=== PATIENT | male | born 1975 | race Caucasian/White ===

== ENCOUNTER 2020-12-09 12:36 | Inpatient (IN) | payer OTHER ==
[2020-12-09] MEDS ORDERED: Sodium Chloride 0.9% 10 ML Syringe FLUSH PRN (13:05)
[2020-12-09] MEDS ORDERED: Sodium Chloride 0.9% 1,000 ML IV SCH (13:15)
--- NOTE | 2020-12-09 13:26 | EDM.PDOC ---
ED HPI GENERAL MEDICAL PROBLEM - General Chief Complaint: Respiratory Problem Stated Complaint: LOW OXYGEN LEVEL SENT BY [facility] Time Seen by Provider: 12/09/20 12:50 Source of Information: Reports: Patient History Limitations: Reports: No Limitations - History of Present Illness INITIAL COMMENTS - FREE TEXT/NARRATIVE: The patient was sent over by the walk in clinic for low oxygen saturations. He started having cold symptoms last week. He had a cough, shortness of breath and fever. He went to the walk in clinic on and they checked him for COVID 19 and he was negative. They did a chest x-ray that looked good. They gave him some albuterol. He is worse. He has shortness of breath with exertion and even talking. He has a cough, generalized weakness, diarrhea, and chills. He has decreased appetite. He still has his sense of taste and smell. When he came back to the room his was 85% on room air. He has a history of hypertension. Onset: Gradual Duration: Week(s): Severity: Moderate Improves with: Reports: None Worsens with: Reports: None Associated Symptoms: Reports: Cough, Fever/Chills, Shortness of Breath. Denies: Chest Pain, Headaches, Nausea/Vomiting - Related Data Allergies Allergy/AdvReac Type Severity Reaction Status Date / Time No Known Allergies Allergy Verified 12/09/20 12:58 Home Meds: Home Meds Losartan [Cozaar] 25 mg PO DAILY 12/09/20 [History] Past Medical History - Past Health History Medical/Surgical History: Denies Medical/Surgical History - Infectious Disease History Infectious Disease History: Reports: None Social & Family History - Tobacco Use Tobacco Use Status *Q: Never Tobacco User Second Hand Smoke Exposure: No - Caffeine Use Caffeine Use: Reports: Coffee - Recreational Drug Use Recreational Drug Use: No ED ROS GENERAL - Review of Systems Review Of Systems: See Below Constitutional: Reports: Chills, Malaise, Weakness, Fatigue. Denies: Fever HEENT: Reports: No Symptoms Respiratory: Reports: Shortness of Breath, Cough Cardiovascular: Reports: No Symptoms Endocrine: Reports: No Symptoms GI/Abdominal: Reports: Diarrhea. Denies: Abdominal Pain, Nausea, Vomiting : Reports: No Symptoms Musculoskeletal: Reports: No Symptoms Skin: Reports: No Symptoms ED EXAM, GENERAL - Physical Exam Exam: See Below Exam Limited By: No Limitations General Appearance: Alert, No Apparent Distress Ears: Normal External Exam Nose: Normal Inspection Head: Atraumatic, Normocephalic Neck: Normal Inspection, Supple, Non-Tender Respiratory/Chest: No Respiratory Distress, Decreased Breath Sounds Cardiovascular: Regular Rate, Rhythm, No Edema, No Murmur GI/Abdominal: Soft, Non-Tender, No Organomegaly, No Mass Back Exam: Normal Inspection Extremities: Normal Inspection #1 Interpretation EKG Date: 12/09/20 Time: 13:20 Rhythm: NSR Rate (Beats/Min): 86 [place]: Normal P-Wave: Present QRS: Normal ST-T: Normal QT: Normal Course - Vital Signs Last Recorded V/S: Last Vital Signs Temp 98.9 F 12/09/20 12:48 Pulse 81 12/09/20 14:51 Resp 18 12/09/20 14:51 BP 135/73 12/09/20 14:51 Pulse Ox 94 L 12/09/20 14:51 - Orders/Labs/Meds Orders: Active Orders 24 hr Category Date Time Status Cardiac Monitoring [RC] . DIRECTED Care 12/09/20 13:05 Active EKG Documentation Completion [RC] STAT Care 12/09/20 13:06 Active Oxygen Therapy [RC] PRN Care 12/09/20 13:05 Active Peripheral IV Care [RC] . DIRECTED Care 12/09/20 13:06 Active Chest 1V Frontal [CR] Stat Exams 12/09/20 13:06 Taken HEPATIC FUNCTION PANEL,HFP [CHEM] DAILY Lab 12/10/20 15:45 Ordered HEPATIC FUNCTION PANEL,HFP [CHEM] DAILY Lab 12/11/20 15:45 Ordered HEPATIC FUNCTION PANEL,HFP [CHEM] DAILY Lab 12/12/20 15:45 Ordered HEPATIC FUNCTION PANEL,HFP [CHEM] DAILY Lab 12/13/20 15:45 Ordered HEPATIC FUNCTION PANEL,HFP [CHEM] Stat Lab 12/09/20 15:42 Ordered Sodium Chloride 0.9% [Normal Saline] 1,000 ml Med 12/09/20 13:15 Active IV .BOLUS Sodium Chloride 0.9% [Saline Flush] Med 12/09/20 13:05 Active 10 ml FLUSH ASDIRECTED PRN Peripheral IV Insertion Adult [OM.PC] Stat Oth 12/09/20 13:05 Ordered Medication Orders Sodium Chloride (Normal Saline) 1,000 mls @ 1,000 mls/hr IV .BOLUS [facility] Last Admin: 12/09/20 13:24 Dose: 1,000 mls/hr Documented by: JANET Sodium Chloride (Sodium Chloride 0.9% 10 Ml Syringe) 10 ml FLUSH ASDIRECTED PRN PRN Reason: Keep Vein Open Last Admin: 12/09/20 13:25 Dose: 10 ml Documented by: JANET Labs: Laboratory Tests 12/09/20 12/09/20 12/09/20 Range/Units 13:20 13:20 13:20 WBC 7.59 (4.23-9.07) K/mm3 RBC 4.95 (4.63-6.08) M/mm3 Hgb 15.0 D (13.7-17.5) gm/dl Hct 42.7 (40.1-51.0) % MCV 86.3 (79.0-92.2) fl MCH 30.3 (25.7-32.2) pg MCHC 35.1 (32.2-35.5) g/dl RDW Std Deviation 37.0 (35.1-43.9) fL Plt Count 259 (163-337) K/mm3 MPV 10.1 (9.4-12.3) fl Neut % (Auto) 80.9 H (34.0-67.9) % Lymph % (Auto) 14.0 L (21.8-53.1) % [place] % (Auto) 4.5 L (5.3-12.2) % Eos % (Auto) 0 L (0.8-7.0) Baso % (Auto) 0.3 (0.1-1.2) % Neut # (Auto) 6.15 H (1.78-5.38) K/mm3 Lymph # (Auto) 1.06 L (1.32-3.57) K/mm3 [place] # (Auto) 0.34 (0.30-0.82) K/mm3 Eos # (Auto) 0.00 L (0.04-0.54) K/mm3 Baso # (Auto) 0.02 (0.01-0.08) K/mm3 Manual Slide Review Not Reportable PT 10.9 (9.7-12.0) SECONDS INR 1.02 APTT 29.5 (21.7-31.4) SECONDS D-Dimer, Quantitative 1.03 H (0.19-0.50) mg/L Sodium 132 L (136-145) mEq/L Potassium 3.5 (3.5-5.1) mEq/L Chloride 95 L (98-107) mEq/L Carbon Dioxide 26 (21-32) mEq/L Anion Gap 14.5 (5-15) BUN 13 (7-18) mg/dL Creatinine 1.1 (0.7-1.3) mg/dL Est Cr Clr Drug Dosing 91.12 mL/min Estimated GFR (MDRD) > 60 (>60) mL/min BUN/Creatinine Ratio 11.8 L (14-18) Glucose 124 H (70-99) mg/dL Lactic Acid (0.4-2.0) mmol/L Calcium 7.9 L (8.5-10.1) mg/dL Ferritin (26-388) ng/ml Total Bilirubin 0.9 (0.2-1.0) mg/dL AST 99 H (15-37) U/L ALT 89 H (16-63) U/L Alkaline Phosphatase 107 (46-116) U/L Lactate Dehydrogenase 584 H (85-227) U/L Troponin I < 0.017 (0.00-0.056) ng/mL C-Reactive Protein 12.2 H* (<1.0) mg/dL Total Protein 7.2 (6.4-8.2) g/dl Albumin 3.4 (3.4-5.0) g/dl Globulin 3.8 gm/dL Albumin/Globulin Ratio 0.9 L (1-2) SARS-CoV-2 RNA (VIRGILIO) (NEGATIVE) 12/09/20 12/09/20 12/09/20 Range/Units 13:20 13:20 13:20 WBC (4.23-9.07) K/mm3 RBC (4.63-6.08) M/mm3 Hgb (13.7-17.5) gm/dl Hct (40.1-51.0) % MCV (79.0-92.2) fl MCH (25.7-32.2) pg MCHC (32.2-35.5) g/dl RDW Std Deviation (35.1-43.9) fL Plt Count (163-337) K/mm3 MPV (9.4-12.3) fl Neut % (Auto) (34.0-67.9) % Lymph % (Auto) (21.8-53.1) % [place] % (Auto) (5.3-12.2) % Eos % (Auto) (0.8-7.0) Baso % (Auto) (0.1-1.2) % Neut # (Auto) (1.78-5.38) K/mm3 Lymph # (Auto) (1.32-3.57) K/mm3 [place] # (Auto) (0.30-0.82) K/mm3 Eos # (Auto) (0.04-0.54) K/mm3 Baso # (Auto) (0.01-0.08) K/mm3 Manual Slide Review PT (9.7-12.0) SECONDS INR APTT (21.7-31.4) SECONDS D-Dimer, Quantitative (0.19-0.50) mg/L Sodium (136-145) mEq/L Potassium (3.5-5.1) mEq/L Chloride (98-107) mEq/L Carbon Dioxide (21-32) mEq/L Anion Gap (5-15) BUN (7-18) mg/dL Creatinine (0.7-1.3) mg/dL Est Cr Clr Drug Dosing mL/min Estimated GFR (MDRD) (>60) mL/min BUN/Creatinine Ratio (14-18) Glucose (70-99) mg/dL Lactic Acid 1.2 (0.4-2.0) mmol/L Calcium (8.5-10.1) mg/dL Ferritin 3787 H (26-388) ng/ml Total Bilirubin (0.2-1.0) mg/dL AST (15-37) U/L ALT (16-63) U/L Alkaline Phosphatase (46-116) U/L Lactate Dehydrogenase (85-227) U/L Troponin I (0.00-0.056) ng/mL C-Reactive Protein (<1.0) mg/dL Total Protein (6.4-8.2) g/dl Albumin (3.4-5.0) g/dl Globulin gm/dL Albumin/Globulin Ratio (1-2) SARS-CoV-2 RNA (VIRGILIO) Positive H (NEGATIVE) Meds: Medications Generic Name Dose Route Start Last Admin Trade Name Irineo PRN Reason Stop Dose Admin Sodium Chloride 1,000 mls @ 1,000 mls/hr 12/09/20 13:15 12/09/20 13:24 Normal Saline IV 1,000 mls/hr .BOLUS GAURAV Administration Sodium Chloride 10 ml 12/09/20 13:05 12/09/20 13:25 Sodium Chloride 0.9% 10 Ml Syringe FLUSH 10 ml ASDIRECTED PRN Administration Keep Vein Open Discontinued Medications Generic Name Dose Route Start Last Admin Trade Name Freq PRN Reason Stop Dose Admin Dexamethasone 6 mg 12/09/20 15:41 Dexamethasone 4 Mg/Ml Sdv IVPUSH 12/09/20 15:42 ONETIME ONE Remdesivir 200 mg/ Sodium 250 mls @ 250 mls/hr 12/09/20 15:41 Chloride IV 12/09/20 15:42 ONETIME ONE - Re-Assessments/Exams Free Text/Narrative Re-Assessment/Exam: 12/09/20 13:29 I ordered oxygen, IV NS 1L bolus, EKG, CXR, labs, lactic acid, blood cultures and COVID 19. 12/09/20 15:54 His CXR shows bilateral fluffy infiltrates consistent with COVID. His CBC looks good. His D-dimer was elevated at 1.03. His Na was low at 132. His lactic acid is normal at 1.2. His ferritin is elevated at 3789. His AST is elevated at 98. His ALT was elevated at 89. His LDH is elevated at 584. His troponin is negative. his CRP is elevated at 12.2. His COVID 19 swab is negative. I have ordered dexamethasone 6mg IV and remdesivir 200mg IV. I feel he needs to be admitted. I called Dr Vanegas and he agreed to the admission. Departure - Departure Time of Disposition: 16:00 Disposition: Admitted As Inpatient 64 Condition: Serious Clinical Impression: COVID-19, Pneumonia due to COVID-19 virus, Hypoxia - Discharge Information Referrals: Gregorio Vanegas MD [Primary Care Provider] - Forms: ED Department Discharge Sepsis Event Note (ED) - Evaluation Sepsis Screening Result: No Definite Risk - Focused Exam Vital Signs: Vital Signs Temp Pulse Resp BP Pulse Ox Pulse Ox 12/09/20 14:51 81 18 135/73 94 L 05/16/21 14:00 94 18 142/78 H 92 L 12/09/20 13:03 87 L 12/09/20 13:00 87 16 127/77 93 L 12/09/20 12:48 98.9 F 91 20 142/76 H 88 L - My Orders Last 24 Hours: My Active Orders 12/09/20 13:05 Cardiac Monitoring [RC] . DIRECTED Oxygen Therapy [RC] PRN Sodium Chloride 0.9% [Saline Flush] 10 ml FLUSH ASDIRECTED PRN Peripheral IV Insertion Adult [OM.PC] Stat 12/09/20 13:06 EKG Documentation Completion [RC] STAT Peripheral IV Care [RC] . DIRECTED Chest 1V Frontal [CR] Stat 12/09/20 13:15 Sodium Chloride 0.9% [Normal Saline] 1,000 ml IV .BOLUS 12/09/20 15:42 HEPATIC FUNCTION PANEL,HFP [CHEM] Stat 12/10/20 15:45 HEPATIC FUNCTION PANEL,HFP [CHEM] DAILY 12/11/20 15:45 HEPATIC FUNCTION PANEL,HFP [CHEM] DAILY 12/12/20 15:45 HEPATIC FUNCTION PANEL,HFP [CHEM] DAILY 12/13/20 15:45 HEPATIC FUNCTION PANEL,HFP [CHEM] DAILY - Assessment/Plan Last 24 Hours: My Active Orders 12/09/20 13:05 Cardiac Monitoring [RC] . DIRECTED Oxygen Therapy [RC] PRN Sodium Chloride 0.9% [Saline Flush] 10 ml FLUSH ASDIRECTED PRN Peripheral IV Insertion Adult [OM.PC] Stat 12/09/20 13:06 EKG Documentation Completion [RC] STAT Peripheral IV Care [RC] . DIRECTED Chest 1V Frontal [CR] Stat 12/09/20 13:15 Sodium Chloride 0.9% [Normal Saline] 1,000 ml IV .BOLUS 12/09/20 15:42 HEPATIC FUNCTION PANEL,HFP [CHEM] Stat 12/10/20 15:45 HEPATIC FUNCTION PANEL,HFP [CHEM] DAILY 12/11/20 15:45 HEPATIC FUNCTION PANEL,HFP [CHEM] DAILY 12/12/20 15:45 HEPATIC FUNCTION PANEL,HFP [CHEM] DAILY 12/13/20 15:45 HEPATIC FUNCTION PANEL,HFP [CHEM] DAILY
[2020-12-09] MEDS ORDERED: REMDESIVIR 200 MG in Sodium Chloride 0.9% 250 ML IV ONE (15:41)
[2020-12-09] MEDS ORDERED: Dexamethasone 4 MG/ML SDV IVPUSH ONE (15:41)
--- NOTE | 2020-12-09 16:02 | PCM.HP.2 ---
H&P History of Present Illness - General Date of Service: 12/09/20 Source of Information: Patient, Old Records, Provider, RN, RN Notes Reviewed History Limitations: Reports: No Limitations - History of Present Illness Initial Comments - Free Text/Narative: This is a 45-year-old male who presents to ED on 12/09/2020 with low oxygen saturations, cough, shortness of breath, and fever. He was reportedly seen at the walk-in clinic this past and they checked him for Covid but he was negative. They did a chest x-ray which look good and gave him some albuterol. Since that time he has had worsening dyspnea on exertion, cough, generalized weakness, diarrhea, and chills. He also reports decreased appetite. In the ED once back in room he was noted to have oxygen saturations 85% on room air. Twelve-lead EKG was obtained showing a sinus rhythm at 86 bpm with no ectopy. Temp was 90.9. Pulse 81. Respirations 18. Blood pressure 135/73. Labs are obtained showing a normal white count at 7.59. Hemoglobin is 15.0. P latelet 259,000. Neutrophils are elevated 80.9%. INR is 1.02. D-dimer is 1.03. Sodium is low at 132. Potassium 3.5. Chloride 95. Carbon dioxide 26. Anion gap is 14.5. BUN is 13. Creatinine 1.1. GFR is greater than 60. Glucose is elevated at 124. Calcium 7.9. Total bilirubin 0.9. AST is elevated at 99, ALT 89, alkaline phosphatase 107. LDH is 584. Troponin less than 0.017. CRP is 12.2. Albumin is 3.4. Lactic acid is 1.2. Ferritin is 3787. SARS Covid 2 RNA is positive. His chest x-ray shows bilateral infiltrates. Formal radiologist read is pending. He is given a 1 L fluid bolus and 200 mg of remdesivir. He is also started on 6 mg IV push of dexamethasone. He carries a history of hypertension. He is a full code. His PCP is Dr. Feldman. He subsequently admitted to the medical floor for treatment and management of his COVID-19 pneumonia. - Related Data Allergies/Adverse Reactions: Allergies Allergy/AdvReac Type Severity Reaction Status Date / Time No Known Allergies Allergy Verified 12/09/20 12:58 Home Medications: Home Meds Losartan [Cozaar] 25 mg PO DAILY 12/09/20 [History] Past Medical History - Past Health History Medical/Surgical History: Denies Medical/Surgical History - Infectious Disease History Infectious Disease History: Reports: None Social & Family History - Tobacco Use Tobacco Use Status *Q: Never Tobacco User Second Hand Smoke Exposure: No - Caffeine Use Caffeine Use: Reports: Coffee - Recreational Drug Use Recreational Drug Use: No H&P Review of Systems - Review of Systems: Review Of Systems: See Below General: Reports: Fever, Chills, Malaise, Weakness, Fatigue HEENT: Reports: No Symptoms. Denies: Headaches, Sore Throat, Vertigo Pulmonary: Reports: Shortness of Breath, Cough, Sputum. Denies: Wheezing, Pleuritic Chest Pain Cardiovascular: Reports: Dyspnea on Exertion. Denies: Chest Pain, Palpitations, Edema Gastrointestinal: Reports: Diarrhea. Denies: Abdominal Pain, Constipation, Nausea, Vomiting Genitourinary: Reports: No Symptoms. Denies: Pain Musculoskeletal: Reports: No Symptoms Skin: Reports: No Symptoms. Denies: Cyanosis Psychiatric: Reports: No Symptoms. Denies: Confusion Neurological: Reports: No Symptoms. Denies: Dizziness, Headache, Numbness, Pre- Existing Deficit, Seizure, Syncope, Tingling, Tremors, Difficulty Walking, Weakness, Gait Disturbance Hematologic/Lymphatic: Reports: No Symptoms Immunologic: Reports: No Symptoms Exam - Exam Exam: See Below - Vital Signs Vital Signs: Last Vital Signs Temp 98.9 F 12/09/20 12:48 Pulse 81 12/09/20 14:51 Resp 18 12/09/20 14:51 BP 135/73 12/09/20 14:51 Pulse Ox 94 L 12/09/20 14:51 Weight: 245 lb - Exam Quality Assessment: Supplemental Oxygen (2L ), DVT Prophylaxis. No: Urinary Catheter General: Alert, Oriented, Cooperative. No: Mild Distress HEENT: Conjunctiva Clear, Mucosa Moist & [place], Posterior Pharynx Clear, Pupils Equal Neck: Supple, Trachea Midline Lungs: Normal Respiratory Effort, Decreased Breath Sounds Cardiovascular: Regular Rate, Regular Rhythm GI/Abdominal Exam: Normal Bowel Sounds, Soft, Non-Tender, No Distention Rectal (Males) Exam: Deferred Back Exam: Normal Inspection, Full Range of Motion Extremities: Normal Inspection, Normal Range of Motion, Non-Tender, No Pedal Edema, Normal Capillary Refill Peripheral Pulses: 3+: Radial (L), Radial (R), Dorsalis Pedis (L), Dorsalis Pedis (R) Skin: Warm, Dry, Intact Neurological: Cranial Nerves Intact (Grossly ) Neuro Extensive - Mental Status: Alert, Oriented x3, Normal Mood/Affect - Patient Data Lab Results Last 24 hrs: Laboratory Results - last 24 hr 12/09/20 12/09/20 12/09/20 Range/Units 13:20 13:20 13:20 WBC 7.59 (4.23-9.07) K/mm3 RBC 4.95 (4.63-6.08) M/mm3 Hgb 15.0 D (13.7-17.5) gm/dl Hct 42.7 (40.1-51.0) % MCV 86.3 (79.0-92.2) fl MCH 30.3 (25.7-32.2) pg MCHC 35.1 (32.2-35.5) g/dl RDW Std Deviation 37.0 (35.1-43.9) fL Plt Count 259 (163-337) K/mm3 MPV 10.1 (9.4-12.3) fl Neut % (Auto) 80.9 H (34.0-67.9) % Lymph % (Auto) 14.0 L (21.8-53.1) % [place] % (Auto) 4.5 L (5.3-12.2) % Eos % (Auto) 0 L (0.8-7.0) Baso % (Auto) 0.3 (0.1-1.2) % Neut # (Auto) 6.15 H (1.78-5.38) K/mm3 Lymph # (Auto) 1.06 L (1.32-3.57) K/mm3 [place]enson # (Auto) 0.34 (0.30-0.82) K/mm3 Eos # (Auto) 0.00 L (0.04-0.54) K/mm3 Baso # (Auto) 0.02 (0.01-0.08) K/mm3 Manual Slide Review Not Reportable PT 10.9 (9.7-12.0) SECONDS INR 1.02 APTT 29.5 (21.7-31.4) SECONDS D-Dimer, Quantitative 1.03 H (0.19-0.50) mg/L Sodium 132 L (136-145) mEq/L Potassium 3.5 (3.5-5.1) mEq/L Chloride 95 L (98-107) mEq/L Carbon Dioxide 26 (21-32) mEq/L Anion Gap 14.5 (5-15) BUN 13 (7-18) mg/dL Creatinine 1.1 (0.7-1.3) mg/dL Est Cr Clr Drug Dosing 91.12 mL/min Estimated GFR (MDRD) > 60 (>60) mL/min BUN/Creatinine Ratio 11.8 L (14-18) Glucose 124 H (70-99) mg/dL Lactic Acid (0.4-2.0) mmol/L Calcium 7.9 L (8.5-10.1) mg/dL Ferritin (26-388) ng/ml Total Bilirubin 0.9 (0.2-1.0) mg/dL AST 99 H (15-37) U/L ALT 89 H (16-63) U/L Alkaline Phosphatase 107 (46-116) U/L Lactate Dehydrogenase 584 H (85-227) U/L Troponin I < 0.017 (0.00-0.056) ng/mL C-Reactive Protein 12.2 H* (<1.0) mg/dL Total Protein 7.2 (6.4-8.2) g/dl Albumin 3.4 (3.4-5.0) g/dl Globulin 3.8 gm/dL Albumin/Globulin Ratio 0.9 L (1-2) SARS-CoV-2 RNA (VIRGILIO) (NEGATIVE) 12/09/20 12/09/20 12/09/20 Range/Units 13:20 13:20 13:20 WBC (4.23-9.07) K/mm3 RBC (4.63-6.08) M/mm3 Hgb (13.7-17.5) gm/dl Hct (40.1-51.0) % MCV (79.0-92.2) fl MCH (25.7-32.2) pg MCHC (32.2-35.5) g/dl RDW Std Deviation (35.1-43.9) fL Plt Count (163-337) K/mm3 MPV (9.4-12.3) fl Neut % (Auto) (34.0-67.9) % Lymph % (Auto) (21.8-53.1) % [place]enson % (Auto) (5.3-12.2) % Eos % (Auto) (0.8-7.0) Baso % (Auto) (0.1-1.2) % Neut # (Auto) (1.78-5.38) K/mm3 Lymph # (Auto) (1.32-3.57) K/mm3 [place] # (Auto) (0.30-0.82) K/mm3 Eos # (Auto) (0.04-0.54) K/mm3 Baso # (Auto) (0.01-0.08) K/mm3 Manual Slide Review PT (9.7-12.0) SECONDS INR APTT (21.7-31.4) SECONDS D-Dimer, Quantitative (0.19-0.50) mg/L Sodium (136-145) mEq/L Potassium (3.5-5.1) mEq/L Chloride (98-107) mEq/L Carbon Dioxide (21-32) mEq/L Anion Gap (5-15) BUN (7-18) mg/dL Creatinine (0.7-1.3) mg/dL Est Cr Clr Drug Dosing mL/min Estimated GFR (MDRD) (>60) mL/min BUN/Creatinine Ratio (14-18) Glucose (70-99) mg/dL Lactic Acid 1.2 (0.4-2.0) mmol/L Calcium (8.5-10.1) mg/dL Ferritin 3787 H (26-388) ng/ml Total Bilirubin (0.2-1.0) mg/dL AST (15-37) U/L ALT (16-63) U/L Alkaline Phosphatase (46-116) U/L Lactate Dehydrogenase (85-227) U/L Troponin I (0.00-0.056) ng/mL C-Reactive Protein (<1.0) mg/dL Total Protein (6.4-8.2) g/dl Albumin (3.4-5.0) g/dl Globulin gm/dL Albumin/Globulin Ratio (1-2) SARS-CoV-2 RNA (VIRGILIO) Positive H (NEGATIVE) Result Diagrams: 12/09/20 13:20 12/09/20 13:20 Sepsis Event Note - Evaluation Sepsis Screening Result: No Definite Risk - Focused Exam Vital Signs: Vital Signs Temp Pulse Resp BP Pulse Ox Pulse Ox 12/09/20 14:51 81 18 135/73 94 L 12/09/20 14:00 94 18 142/78 H 92 L 12/09/20 13:03 87 L 12/09/20 13:00 87 16 127/77 93 L 12/09/20 12:48 98.9 F 91 20 142/76 H 88 L - Problem List (1) HTN (hypertension) SNOMED Code(s): 26731915 ICD Code: I10 - ESSENTIAL (PRIMARY) HYPERTENSION Status: Chronic Priority: Low Current Visit: No Qualifiers: Hypertension type: unspecified Qualified Code(s): I10 - Essential (primary) hypertension (2) Acute respiratory failure with hypoxia SNOMED Code(s): 00080512, 099307898 ICD Code: J96.01 - ACUTE RESPIRATORY FAILURE WITH HYPOXIA Status: Acute Priority: High Current Visit: Yes (3) Pneumonia due to 2019 novel coronavirus SNOMED Code(s): 332631396866409070 ICD Code: U07.1 - COVID-19; J12.82 - PNEUMONIA DUE TO CORONAVIRUS DISEASE 2019 Status: Acute Priority: High Current Visit: Yes (4) Transaminitis SNOMED Code(s): 716828147, 685367858 ICD Code: R74.01 - ELEVATION OF LEVELS OF LIVER TRANSAMINASE LEVELS Status: Acute Priority: High Current Visit: Yes (5) Elevated d-dimer SNOMED Code(s): 446886007 ICD Code: R79.89 - OTHER SPECIFIED ABNORMAL FINDINGS OF BLOOD CHEMISTRY Status: Acute Priority: High Current Visit: Yes (6) Hypocalcemia SNOMED Code(s): 1829764 ICD Code: E83.51 - HYPOCALCEMIA Status: Acute Priority: Medium Current Visit: Yes (7) Hyponatremia SNOMED Code(s): 16735287 ICD Code: E87.1 - HYPO-OSMOLALITY AND HYPONATREMIA Status: Acute Priority: Medium Current Visit: Yes (8) Hypokalemia SNOMED Code(s): 35414789 ICD Code: E87.6 - HYPOKALEMIA Status: Acute Priority: Medium Current Vi sit: Yes (9) Hyperglycemia SNOMED Code(s): 18760012 ICD Code: R73.9 - HYPERGLYCEMIA, UNSPECIFIED Status: Acute Priority: Medium Current Visit: Yes (10) Obesity SNOMED Code(s): 562992745, 713096111 ICD Code: E66.9 - OBESITY, UNSPECIFIED Status: Chronic Priority: Medium Current Visit: Yes Qualifiers: Obesity type: unspecified obesity type Obesity classification: adult class 1 (BMI 30 - 34.9) Serious obesity comorbidity presence: without serious comorbidity Body mass index: BMI 33.0-33.9 Qualified Code(s): E66.9 - Obesity, unspecified; Z68.33 - Body mass index [BMI] 33.0-33.9, adult Problem List Initiated/Reviewed/Updated: Yes Orders Last 24hrs: Active Orders 24 hr Category Date Time Status Cardiac Monitoring [RC] . DIRECTED Care 12/09/20 13:05 Active EKG Documentation Completion [RC] STAT Care 12/09/20 13:06 Active Oxygen Therapy [RC] PRN Care 12/09/20 13:05 Active Peripheral IV Care [RC] . DIRECTED Care 12/09/20 13:06 Active Chest 1V Frontal [CR] Stat Exams 12/09/20 13:06 Taken HEPATIC FUNCTION PANEL,HFP [CHEM] DAILY Lab 12/10/20 15:45 Ordered HEPATIC FUNCTION PANEL,HFP [CHEM] DAILY Lab 12/11/20 15:45 Ordered HEPATIC FUNCTION PANEL,HFP [CHEM] DAILY Lab 12/12/20 15:45 Ordered HEPATIC FUNCTION PANEL,HFP [CHEM] DAILY Lab 12/13/20 15:45 Ordered HEPATIC FUNCTION PANEL,HFP [CHEM] Stat Lab 12/09/20 15:42 Ordered Sodium Chloride 0.9% [Normal Saline] 1,000 ml Med 12/09/20 13:15 Active IV .BOLUS Sodium Chloride 0.9% [Saline Flush] Med 12/09/20 13:05 Active 10 ml FLUSH ASDIRECTED PRN Peripheral IV Insertion Adult [OM.PC] Stat Oth 12/09/20 13:05 Ordered Medication Orders Sodium Chloride (Normal Saline) 1,000 mls @ 1,000 mls/hr IV .BOLUS GAURAV Last Admin: 12/09/20 13:24 Dose: 1,000 mls/hr Documented by: SCHMKAT Sodium Chloride (Sodium Chloride 0.9% 10 Ml Syringe) 10 ml FLUSH ASDIRECTED PRN PRN Reason: Keep Vein Open Last Admin: 12/09/20 13:25 Dose: 10 ml Documented by: JANET Assessment/Plan Comment:: Assessment - Day of admission, 12/09/2020 * 45-year-old male presents to ED from [facility] with low oxygen saturations. * Reports onset of symptoms 10 to 12 days ago. * Reports history of cough, generalized weakness, diarrhea, chills, fever, and shortness of breath. * Was reportedly seen in walk-in clinic on 12/06/2020 with negative Covid test and negative chest x-ray. * Noted to have saturations of 85% on room air in ED. * History of high blood pressure on losartan. * Twelve-lead EKG shows a sinus rhythm at 86 bpm with no ectopy or ST changes. * Labs in ED: * WBC 7.59. * Hemoglobin 15.0. * Platelet 259,000. * Neutrophils elevated at 80.9%. * INR 1.02. * D-dimer 1.03. * Sodium 132. * Potassium 3.5. * Chloride 95. * Carbon dioxide 26. * Anion gap 14.5. * BUN 13. Creatinine 1.1. GFR greater than 60. * Glucose 124. * Calcium 7.9. * Total bilirubin 0.9. * AST 99, ALT 89, alkaline phosphatase 107. * LDH 584. * Troponin less than 0.017. * CRP 12.2. * Albumin 3.4. * SARS Covid 2 RNA positive. * Lactic acid 1.2. * Ferritin 3787. * Chest x-ray obtained shows bilateral infiltrates consistent with COVID-19. Formal radiologist read is pending. * He is given a 1 L fluid bolus in the ED and started on 200 mg remdesivir. Also given 6 mg dexamethasone. * Subsequently admitted to the medical floor on telemetry for management of COVID-19 pneumonia and electrolyte abnormalities. * Labs on floor: * Magnesium 2.0 * A1C 6.1% PLAN: Acute respiratory failure with hypoxia Pneumonia due to 2019 novel coronavirus Elevated d-dimer * CTA of chest to rule-out PE * O2 as needed to keep saturations 88-95% * IS/Acapella * PRN Albuterol inhaler * Droplet/contact isolation * Remdesivir - day 07/31 * Rocephin 2gm - day 07/31 * Azithromycin 500mg - day 07/29 * Ambulate in room * Prone whenever able * Dexamethasone 6mg - day 08/05 * Will hold off PT/OT for now * Famotidine 20mg BID * Start ASA 81mg * Lovenox 40mg pending CTA results * D-Dimer Q48 hrs * Daily CBC, CMP, Magnesium * Telemetry with continuous pulse oximeter * Supplement zinc and vitamin D * Check vitamin D level Transaminitis * Caution with Remdesivir * Monitor daily CMP * Likely worsened by COVID-19 Prediabetic - A1C 6.1% Hyperglycemia Obesity * [employer] consult * Diabetic diet * Check blood glucose BID (AM with lab draw and 1700 bedside) * Monitor need for sliding scale insulin * Anticipate elevation in blood glucose readings with steroid Hypocalcemia Hyponatremia Hypokalemia * Supplement 40mEq potassium now * IV fluids given in ED * Calcium carbonate 600mg BID AC * Monitor CMP HTN (hypertension) * Hold home lisinopril for now * Monitor BP Code status: CPR only - Do not intubate (confirmed with patient on 12/09/2020) PCP: Dr. Feldman DVT Prophylaxis: Lovenox Disposition: Admitted inpatient to medical floor with telemetry for management of COVID-19 pneumonia and electrolyte abnormalities. Likely length of stay 5 days for COVID-19 treatment. - Mortality Measure Prognosis:: Good
[2020-12-09] MEDS ORDERED: Docusate Sodium 100 MG Cap PO PRN (16:04)
[2020-12-09] MEDS ORDERED: Ondansetron 4 MG/2 ML SDV IV PRN (16:04)
[2020-12-09] MEDS ORDERED: Magnesium Hydroxide 400 MG/5 ML Susp 30 ML Cup PO PRN (16:04)
[2020-12-09] MEDS ORDERED: Potassium Chloride 20 MEQ Tab.ER PO ONE (16:12)
[2020-12-09] MEDS ORDERED: Azithromycin 500 MG in Sodium Chloride 0.9% 250 ML IV SCH (16:15)
[2020-12-09] MEDS ORDERED: cefTRIAXone 2 GM in Sodium Chloride 0.9% 100 ML IV SCH (16:15)
[2020-12-09] MEDS ORDERED: Albuterol 6.7 GM Inhaler INH PRN (16:24)
[2020-12-09 17:10] LABS: HEMOGLOBIN A1C 6.1 %
[2020-12-09] MEDS: Calcium Carbonate 600 MG Tab PO SCH (18:33)
[2020-12-09] MEDS: Zinc Sulfate 220 MG Cap PO SCH (18:33)
[2020-12-09] MEDS: Aspirin 81 MG Tab.Chew PO SCH (18:33)
[2020-12-09] MEDS: Cholecalciferol (Vitamin D3) 5,000 UNIT Cap PO SCH (18:33)
[2020-12-09] MEDS: Enoxaparin 40 MG/0.4 ML Syringe SUBCUT SCH (18:34)
[2020-12-09] MEDS: Famotidine 20 MG Tab PO SCH (20:30)
[2020-12-09] MEDS: cefTRIAXone 2 GM in Sodium Chloride 0.9% 100 ML IV SCH (20:30)
[2020-12-10] MEDS: Calcium Carbonate 600 MG Tab PO SCH ×2 (06:07→16:36)
--- NOTE | 2020-12-10 07:28 | CT ---
CT chest Technique: Multiple axial sections were obtained through the chest. Intravenous contrast was utilized. Reconstructed coronal and sagittal images were obtained. Comparison: Prior chest x-ray performed earlier on the same date. No prior chest CT study is available. Findings: Small portion of the visualized upper abdominal structures show fatty infiltration within the liver. Nothing acute is seen within the visualized abdomen. No pericardial thickening is seen. Thoracic aorta shows no aneurysm. Mediastinum and hilar regions show no adenopathy. Slight lymph nodes are seen within the mediastinum and hilar regions most likely related to patient's infection. Pulmonary arteries are not optimally opacified. No findings of pulmonary embolism are seen within the main or segmental branches. Smaller subsegmental pulmonary emboli could be missed. Lung window settings were reviewed. Diffuse parenchymal densities are seen within both sides of the chest. No pleural effusion is seen. Bone window settings were reviewed which show no acute osseous finding. Impression: 1. Pulmonary arteries are not optimally opacified. No findings of pulmonary embolism are seen within the main or segmental branches. 2. Diffuse parenchymal densities within both sides of the chest compatible with diffuse Covid-19 pneumonia. 3. Diffuse fatty infiltration within the liver. 4. Slightly prominent lymph nodes within the mediastinum and hilar regions compatible with patient's viral disease. Diagnostic code #3 I agree with preliminary report from [facility], finalized on 12/09/20, 8:43 PM CDT, code 1
--- NOTE | 2020-12-10 07:46 | CR ---
Chest: Portable view of the chest was obtained. Comparison: Prior chest x-ray of 03/22/19. Patchy areas of increased density are scattered within both sides of the chest. Heart size and mediastinum are within normal limits for portable technique. Bony structures show nothing acute. Impression: 1. Patchy areas of increased density most likely representing Covid-19 pneumonia. This is an interval change from prior chest x-ray. Diagnostic code #3
[2020-12-10] MEDS ORDERED: Famotidine 20 MG Tab PO SCH (09:00)
[2020-12-10] MEDS: Losartan 25 MG Tab PO SCH (10:29)
[2020-12-10] MEDS: Famotidine 20 MG Tab PO SCH ×2 (10:29→20:29)
[2020-12-10] MEDS: Zinc Sulfate 220 MG Cap PO SCH (10:29)
[2020-12-10] MEDS: Cholecalciferol (Vitamin D3) 5,000 UNIT Cap PO SCH (10:29)
[2020-12-10] MEDS: Dexamethasone 4 MG Tab PO SCH (10:30)
[2020-12-10] MEDS: Enoxaparin 40 MG/0.4 ML Syringe SUBCUT SCH (10:30)
[2020-12-10] MEDS: Aspirin 81 MG Tab.Chew PO SCH (10:31)
--- NOTE | 2020-12-10 12:52 | PCM.PN ---
- General Info Date of Service: 12/10/20 Subjective Update: Alcides states he is feeling much better today. He was on 40 L of oxygen overnight however he is down to 1 L per nasal cannula today. He has been afebrile the past 24 hours. States he has started to have an occasional productive cough of clear sputum. States he was up several times throughout the night with diarrhea. He reports that his appetite is good. He has been up ambulating independently in the room. Functional Status: Reports: Pain Controlled, Tolerating Diet, Ambulating, Urinating, Incentive Spirometry - Review of Systems General: Reports: No Symptoms HEENT: Reports: No Symptoms Pulmonary: Reports: Cough (Occasional productive cough), Sputum (Clear). Denies: Shortness of Breath (He denies shortness of breath) Cardiovascular: Reports: No Symptoms Gastrointestinal: Reports: Diarrhea (Reports diarrhea throughout the night). Denies: Abdominal Pain, Constipation, Decreased Appetite, Nausea, Vomiting Genitourinary: Reports: No Symptoms Musculoskeletal: Reports: No Symptoms Skin: Reports: No Symptoms Neurological: Reports: No Symptoms Psychiatric: Reports: No Symptoms - Patient Data Vitals - Most Recent: Last Vital Signs Temp 98.4 F 12/10/20 07:52 Pulse 65 12/10/20 07:52 Resp 20 12/10/20 07:52 BP 132/70 12/10/20 10:29 Pulse Ox 91 L 12/10/20 09:44 Weight - Most Recent: 245 lb 3.2 oz I&O - Last 24 Hours: Intake & Output 12/09/20 12/10/20 12/10/20 22:59 06:59 14:59 Intake Total 0 900 Output Total 500 Balance 0 400 Lab Results Last 24 Hours: Laboratory Results - last 24 hr 12/09/20 12/09/20 12/09/20 Range/Units 13:20 13:20 13:20 WBC 7.59 (4.23-9.07) K/mm3 RBC 4.95 (4.63-6.08) M/mm3 Hgb 15.0 D (13.7-17.5) gm/dl Hct 42.7 (40.1-51.0) % MCV 86.3 (79.0-92.2) fl MCH 30.3 (25.7-32.2) pg MCHC 35.1 (32.2-35.5) g/dl RDW Std Deviation 37.0 (35.1-43.9) fL Plt Count 259 (163-337) K/mm3 MPV 10.1 (9.4-12.3) fl Neut % (Auto) 80.9 H (34.0-67.9) % Lymph % (Auto) 14.0 L (21.8-53.1) % Angelina % (Auto) 4.5 L (5.3-12.2) % Eos % (Auto) 0 L (0.8-7.0) Baso % (Auto) 0.3 (0.1-1.2) % Neut # (Auto) 6.15 H (1.78-5.38) K/mm3 Lymph # (Auto) 1.06 L (1.32-3.57) K/mm3 Angelina # (Auto) 0.34 (0.30-0.82) K/mm3 Eos # (Auto) 0.00 L (0.04-0.54) K/mm3 Baso # (Auto) 0.02 (0.01-0.08) K/mm3 Manual Slide Review Not Reportable PT 10.9 (9.7-12.0) SECONDS INR 1.02 APTT 29.5 (21.7-31.4) SECONDS D-Dimer, Quantitative 1.03 H (0.19-0.50) mg/L Sodium 132 L (136-145) mEq/L Potassium 3.5 (3.5-5.1) mEq/L Chloride 95 L (98-107) mEq/L Carbon Dioxide 26 (21-32) mEq/L Anion Gap 14.5 (5-15) BUN 13 (7-18) mg/dL Creatinine 1.1 (0.7-1.3) mg/dL Est Cr Clr Drug Dosing 91.12 mL/min Estimated GFR (MDRD) > 60 (>60) mL/min BUN/Creatinine Ratio 11.8 L (14-18) Glucose 124 H (70-99) mg/dL POC Glucose (70-99) mg/dL Hemoglobin A1c ( - 5.6) % Lactic Acid (0.4-2.0) mmol/L Calcium 7.9 L (8.5-10.1) mg/dL Magnesium (1.8-2.4) mg/dL Ferritin (26-388) ng/ml Total Bilirubin 0.9 (0.2-1.0) mg/dL Direct Bilirubin (0.0-0.2) mg/dl Indirect Bilirubin AST 99 H (15-37) U/L ALT 89 H (16-63) U/L Alkaline Phosphatase 107 (46-116) U/L Lactate Dehydrogenase 584 H (85-227) U/L Troponin I < 0.017 (0.00-0.056) ng/mL C-Reactive Protein 12.2 H* (<1.0) mg/dL Total Protein 7.2 (6.4-8.2) g/dl Albumin 3.4 (3.4-5.0) g/dl Globulin 3.8 gm/dL Albumin/Globulin Ratio 0.9 L (1-2) Vitamin D 25-Hydroxy (30.0-100.0) ng/ml SARS-CoV-2 RNA ([facility]IO) (NEGATIVE) 12/09/20 12/09/20 12/09/20 Range/Units 13:20 13:20 13:20 WBC (4.23-9.07) K/mm3 RBC (4.63-6.08) M/mm3 Hgb (13.7-17.5) gm/dl Hct (40.1-51.0) % MCV (79.0-92.2) fl MCH (25.7-32.2) pg MCHC (32.2-35.5) g/dl RDW Std Deviation (35.1-43.9) fL Plt Count (163-337) K/mm3 MPV (9.4-12.3) fl Neut % (Auto) (34.0-67.9) % Lymph % (Auto) (21.8-53.1) % Angelina % (Auto) (5.3-12.2) % Eos % (Auto) (0.8-7.0) Baso % (Auto) (0.1-1.2) % Neut # (Auto) (1.78-5.38) K/mm3 Lymph # (Auto) (1.32-3.57) K/mm3 Angelina # (Auto) (0.30-0.82) K/mm3 Eos # (Auto) (0.04-0.54) K/mm3 Baso # (Auto) (0.01-0.08) K/mm3 Manual Slide Review PT (9.7-12.0) SECONDS INR APTT (21.7-31.4) SECONDS D-Dimer, Quantitative (0.19-0.50) mg/L Sodium (136-145) mEq/L Potassium (3.5-5.1) mEq/L Chloride (98-107) mEq/L Carbon Dioxide (21-32) mEq/L Anion Gap (5-15) BUN (7-18) mg/dL Creatinine (0.7-1.3) mg/dL Est Cr Clr Drug Dosing mL/min Estimated GFR (MDRD) (>60) mL/min BUN/Creatinine Ratio (14-18) Glucose (70-99) mg/dL POC Glucose (70-99) mg/dL Hemoglobin A1c ( - 5.6) % Lactic Acid 1.2 (0.4-2.0) mmol/L Calcium (8.5-10.1) mg/dL Magnesium (1.8-2.4) mg/dL Ferritin 3787 H (26-388) ng/ml Total Bilirubin (0.2-1.0) mg/dL Direct Bilirubin (0.0-0.2) mg/dl Indirect Bilirubin AST (15-37) U/L ALT (16-63) U/L Alkaline Phosphatase (46-116) U/L Lactate Dehydrogenase (85-227) U/L Troponin I (0.00-0.056) ng/mL C-Reactive Protein (<1.0) mg/dL Total Protein (6.4-8.2) g/dl Albumin (3.4-5.0) g/dl Globulin gm/dL Albumin/Globulin Ratio (1-2) Vitamin D 25-Hydroxy (30.0-100.0) ng/ml SARS-CoV-2 RNA ([facility]IO) Positive H (NEGATIVE) 12/09/20 12/09/20 12/09/20 Range/Units 13:20 13:20 13:20 WBC (4.23-9.07) K/mm3 RBC (4.63-6.08) M/mm3 Hgb (13.7-17.5) gm/dl Hct (40.1-51.0) % MCV (79.0-92.2) fl MCH (25.7-32.2) pg MCHC (32.2-35.5) g/dl RDW Std Deviation (35.1-43.9) fL Plt Count (163-337) K/mm3 MPV (9.4-12.3) fl Neut % (Auto) (34.0-67.9) % Lymph % (Auto) (21.8-53.1) % Angelina % (Auto) (5.3-12.2) % Eos % (Auto) (0.8-7.0) Baso % (Auto) (0.1-1.2) % Neut # (Auto) (1.78-5.38) K/mm3 Lymph # (Auto) (1.32-3.57) K/mm3 Angelina # (Auto) (0.30-0.82) K/mm3 Eos # (Auto) (0.04-0.54) K/mm3 Baso # (Auto) (0.01-0.08) K/mm3 Manual Slide Review PT (9.7-12.0) SECONDS INR APTT (21.7-31.4) SECONDS D-Dimer, Quantitative (0.19-0.50) mg/L Sodium (136-145) mEq/L Potassium (3.5-5.1) mEq/L Chloride (98-107) mEq/L Carbon Dioxide (21-32) mEq/L Anion Gap (5-15) BUN (7-18) mg/dL Creatinine (0.7-1.3) mg/dL Est Cr Clr Drug Dosing mL/min Estimated GFR (MDRD) (>60) mL/min BUN/Creatinine Ratio (14-18) Glucose (70-99) mg/dL POC Glucose (70-99) mg/dL Hemoglobin A1c 6.1 H ( - 5.6) % Lactic Acid (0.4-2.0) mmol/L Calcium (8.5-10.1) mg/dL Magnesium 2.0 (1.8-2.4) mg/dL Ferritin (26-388) ng/ml Total Bilirubin 0.9 (0.2-1.0) mg/dL Direct Bilirubin 0.30 H (0.0-0.2) mg/dl Indirect Bilirubin 0.60 AST 101 H (15-37) U/L ALT 90 H (16-63) U/L Alkaline Phosphatase 106 (46-116) U/L Lactate Dehydrogenase (85-227) U/L Troponin I (0.00-0.056) ng/mL C-Reactive Protein (<1.0) mg/dL Total Protein 7.3 (6.4-8.2) g/dl Albumin 3.5 (3.4-5.0) g/dl Globulin 3.8 gm/dL Albumin/Globulin Ratio 0.9 L (1-2) Vitamin D 25-Hydroxy (30.0-100.0) ng/ml SARS-CoV-2 RNA ([facility]IO) (NEGATIVE) 12/09/20 12/09/20 12/10/20 Range/Units 13:20 17:50 06:12 WBC 5.50 (4.23-9.07) K/mm3 RBC 4.93 (4.63-6.08) M/mm3 Hgb 14.8 (13.7-17.5) gm/dl Hct 42.9 (40.1-51.0) % MCV 87.0 (79.0-92.2) fl MCH 30.0 (25.7-32.2) pg MCHC 34.5 (32.2-35.5) g/dl RDW Std Deviation 38.3 (35.1-43.9) fL Plt Count 268 (163-337) K/mm3 MPV 10.2 (9.4-12.3) fl Neut % (Auto) 72.4 H (34.0-67.9) % Lymph % (Auto) 18.9 L (21.8-53.1) % Angelina % (Auto) 7.8 (5.3-12.2) % Eos % (Auto) 0 L (0.8-7.0) Baso % (Auto) 0.5 (0.1-1.2) % Neut # (Auto) 3.98 (1.78-5.38) K/mm3 Lymph # (Auto) 1.04 L (1.32-3.57) K/mm3 Angelina # (Auto) 0.43 (0.30-0.82) K/mm3 Eos # (Auto) 0.00 L (0.04-0.54) K/mm3 Baso # (Auto) 0.03 (0.01-0.08) K/mm3 Manual Slide Review Normal smear PT (9.7-12.0) SECONDS INR APTT (21.7-31.4) SECONDS D-Dimer, Quantitative (0.19-0.50) mg/L Sodium (136-145) mEq/L Potassium (3.5-5.1) mEq/L Chloride (98-107) mEq/L Carbon Dioxide (21-32) mEq/L Anion Gap (5-15) BUN (7-18) mg/dL Creatinine (0.7-1.3) mg/dL Est Cr Clr Drug Dosing mL/min Estimated GFR (MDRD) (>60) mL/min BUN/Creatinine Ratio (14-18) Glucose (70-99) mg/dL POC Glucose 132 H (70-99) mg/dL Hemoglobin A1c ( - 5.6) % Lactic Acid (0.4-2.0) mmol/L Calcium (8.5-10.1) mg/dL Magnesium (1.8-2.4) mg/dL Ferritin (26-388) ng/ml Total Bilirubin (0.2-1.0) mg/dL Direct Bilirubin (0.0-0.2) mg/dl Indirect Bilirubin AST (15-37) U/L ALT (16-63) U/L Alkaline Phosphatase (46-116) U/L Lactate Dehydrogenase (85-227) U/L Troponin I (0.00-0.056) ng/mL C-Reactive Protein (<1.0) mg/dL Total Protein (6.4-8.2) g/dl Albumin (3.4-5.0) g/dl Globulin gm/dL Albumin/Globulin Ratio (1-2) Vitamin D 25-Hydroxy 19.9 L (30.0-100.0) ng/ml SARS-CoV-2 RNA ([facility]) (NEGATIVE) 12/10/20 Range/Units 06:12 WBC (4.23-9.07) K/mm3 RBC (4.63-6.08) M/mm3 Hgb (13.7-17.5) gm/dl Hct (40.1-51.0) % MCV (79.0-92.2) fl MCH (25.7-32.2) pg MCHC (32.2-35.5) g/dl RDW Std Deviation (35.1-43.9) fL Plt Count (163-337) K/mm3 MPV (9.4-12.3) fl Neut % (Auto) (34.0-67.9) % Lymph % (Auto) (21.8-53.1) % Angelina % (Auto) (5.3-12.2) % Eos % (Auto) (0.8-7.0) Baso % (Auto) (0.1-1.2) % Neut # (Auto) (1.78-5.38) K/mm3 Lymph # (Auto) (1.32-3.57) K/mm3 Angelina # (Auto) (0.30-0.82) K/mm3 Eos # (Auto) (0.04-0.54) K/mm3 Baso # (Auto) (0.01-0.08) K/mm3 Manual Slide Review PT (9.7-12.0) SECONDS INR APTT (21.7-31.4) SECONDS D-Dimer, Quantitative (0.19-0.50) mg/L Sodium 135 L (136-145) mEq/L Potassium 4.1 (3.5-5.1) mEq/L Chloride 98 (98-107) mEq/L Carbon Dioxide 23 (21-32) mEq/L Anion Gap 18.1 H (5-15) BUN 13 (7-18) mg/dL Creatinine 0.9 (0.7-1.3) mg/dL Est Cr Clr Drug Dosing 111.37 mL/min Estimated GFR (MDRD) > 60 (>60) mL/min BUN/Creatinine Ratio 14.4 (14-18) Glucose 123 H (70-99) mg/dL POC Glucose (70-99) mg/dL Hemoglobin A1c ( - 5.6) % Lactic Acid (0.4-2.0) mmol/L Calcium 8.1 L (8.5-10.1) mg/dL Magnesium 2.3 (1.8-2.4) mg/dL Ferritin (26-388) ng/ml Total Bilirubin 0.7 (0.2-1.0) mg/dL Direct Bilirubin (0.0-0.2) mg/dl Indirect Bilirubin AST 73 H (15-37) U/L ALT 78 H (16-63) U/L Alkaline Phosphatase 92 (46-116) U/L Lactate Dehydrogenase (85-227) U/L Troponin I (0.00-0.056) ng/mL C-Reactive Protein 14.6 H* (<1.0) mg/dL Total Protein 7.0 (6.4-8.2) g/dl Albumin 3.1 L (3.4-5.0) g/dl Globulin 3.9 gm/dL Albumin/Globulin Ratio 0.8 L (1-2) Vitamin D 25-Hydroxy (30.0-100.0) ng/ml SARS-CoV-2 RNA ([facility]) (NEGATIVE) Med Orders - Current: Current Medications Acetaminophen (Acetaminophen 325 Mg Tab) 650 mg PO Q4H PRN PRN Reason: Pain (Mild 1-3)/fever Albuterol (Albuterol 6.7 Gm Inhaler) 0 gm INH Q2H PRN PRN Reason: SOB/Wheezing Aspirin (Aspirin 81 Mg Tab.Chew) 81 mg PO DAILY [facility] Last Admin: 12/10/20 10:31 Dose: 81 mg Documented by: Calcium Carbonate/Glycine (Calcium Carbonate 600 Mg Tab) 600 mg PO BIDMEALS [facility] Last Admin: 12/10/20 06:07 Dose: 600 mg Documented by: Cholecalciferol (Cholecalciferol (Vitamin D3) 5,000 Unit Cap) 5,000 unit PO DAILY [facility] Last Admin: 12/10/20 10:29 Dose: 5,000 unit Documented by: Dexamethasone (Dexamethasone 4 Mg Tab) 6 mg PO DAILY [facility] Stop: 12/18/20 09:01 Last Admin: 12/10/20 10:30 Dose: 6 mg Documented by: Docusate Sodium (Docusate Sodium 100 Mg Cap) 100 mg PO BID PRN PRN Reason: Constipation Enoxaparin Sodium (Enoxaparin 40 Mg/0.4 Ml Syringe) 40 mg SUBCUT DAILY [facility] Last Admin: 12/10/20 10:30 Dose: 40 mg Documented by: Famotidine (Famotidine 20 Mg Tab) 20 mg PO BID [facility] Last Admin: 12/10/20 10:29 Dose: 20 mg Documented by: Ceftriaxone Sodium 2 gm/ (Sodium Chloride) 100 mls @ 200 mls/hr IV Q24H [facility] Last Admin: 12/09/20 20:30 Dose: 200 mls/hr Documented by: Remdesivir 100 mg/ Sodium (Chloride) 100 mls @ 100 mls/hr IV Q24H [facility] Stop: 12/13/20 17:29 Azithromycin 500 mg/ Sodium (Chloride) 250 mls @ 250 mls/hr IV Q24H [facility] Stop: 12/11/20 18:59 Losartan Potassium (Losartan 25 Mg Tab) 25 mg PO DAILY [facility] Last Admin: 12/10/20 10:29 Dose: 25 mg Documented by: Magnesium Hydroxide (Magnesium Hydroxide 400 Mg/5 Ml Susp 30 Ml Cup) 30 ml PO Q12H PRN PRN Reason: Constipation Ondansetron HCl (Ondansetron 4 Mg/2 Ml Sdv) 4 mg IV Q6H PRN PRN Reason: Nausea/Vomiting Sodium Chloride (Sodium Chloride 0.9% 10 Ml Syringe) 10 ml FLUSH ASDIRECTED PRN PRN Reason: Keep Vein Open Last Admin: 12/09/20 13:25 Dose: 10 ml Documented by: Zinc Sulfate (Zinc Sulfate 220 Mg Cap) 220 mg PO DAILY [facility] Last Admin: 12/10/20 10:29 Dose: 220 mg Documented by: Discontinued Medications Dexamethasone (Dexamethasone 4 Mg/Ml Sdv) 6 mg IVPUSH ONETIME ONE Stop: 12/09/20 15:42 Last Admin: 12/09/20 16:33 Dose: 6 mg Documented by: Famotidine (Famotidine 20 Mg Tab) 20 mg PO DAILY [facility] Sodium Chloride (Normal Saline) 1,000 mls @ 1,000 mls/hr IV .BOLUS [facility] Last Admin: 12/09/20 13:24 Dose: 1,000 mls/hr Documented by: Remdesivir 200 mg/ Sodium (Chloride) 250 mls @ 250 mls/hr IV ONETIME ONE Stop: 12/09/20 15:42 Last Admin: 12/09/20 16:34 Dose: 250 mls/hr Documented by: Azithromycin 500 mg/ Sodium (Chloride) 250 mls @ 250 mls/hr IV Q24H [facility] Stop: 12/11/20 17:14 Last Admin: 12/09/20 18:42 Dose: 250 mls/hr Documented by: Potassium Chloride (Potassium Chloride 20 Meq Tab.Er) 40 meq PO ONETIME ONE Stop: 12/09/20 16:13 Last Admin: 12/09/20 16:37 Dose: 40 meq Documented by: - Exam Quality Assessment: Supplemental Oxygen (1 L per nasal cannula), DVT Prophylaxis (Lovenox) General: Alert, Oriented, Cooperative, No Acute Distress HEENT: Pupils Equal, Mucous Membr. Moist/[place] Neck: Supple, Trachea Midline Lungs: Clear to Auscultation, Normal Respiratory Effort Cardiovascular: Regular Rate, Regular Rhythm GI/Abdominal Exam: Normal Bowel Sounds, Soft, Non-Tender, No Distention (Male) Exam: Deferred Back Exam: Normal Inspection, Full Range of Motion Extremities: Normal Inspection, Normal Range of Motion, Non-Tender, No Pedal Edema, Normal Capillary Refill Peripheral Pulses: 2+: Radial (L), Radial (R) Skin: Warm, Dry, Intact Neurological: No New Focal Deficit Psy/Mental Status: Alert, Normal Affect, Normal Mood - Patient Data Lab Results Last 24 hrs: Laboratory Results - last 24 hr 12/09/20 12/09/20 12/09/20 Range/Units 13:20 13:20 13:20 WBC 7.59 (4.23-9.07) K/mm3 RBC 4.95 (4.63-6.08) M/mm3 Hgb 15.0 D (13.7-17.5) gm/dl Hct 42.7 (40.1-51.0) % MCV 86.3 (79.0-92.2) fl MCH 30.3 (25.7-32.2) pg MCHC 35.1 (32.2-35.5) g/dl RDW Std Deviation 37.0 (35.1-43.9) fL Plt Count 259 (163-337) K/mm3 MPV 10.1 (9.4-12.3) fl Neut % (Auto) 80.9 H (34.0-67.9) % Lymph % (Auto) 14.0 L (21.8-53.1) % Angelina % (Auto) 4.5 L (5.3-12.2) % Eos % (Auto) 0 L (0.8-7.0) Baso % (Auto) 0.3 (0.1-1.2) % Neut # (Auto) 6.15 H (1.78-5.38) K/mm3 Lymph # (Auto) 1.06 L (1.32-3.57) K/mm3 Angelina # (Auto) 0.34 (0.30-0.82) K/mm3 Eos # (Auto) 0.00 L (0.04-0.54) K/mm3 Baso # (Auto) 0.02 (0.01-0.08) K/mm3 Manual Slide Review Not Reportable PT 10.9 (9.7-12.0) SECONDS INR 1.02 APTT 29.5 (21.7-31.4) SECONDS D-Dimer, Quantitative 1.03 H (0.19-0.50) mg/L Sodium 132 L (136-145) mEq/L Potassium 3.5 (3.5-5.1) mEq/L Chloride 95 L (98-107) mEq/L Carbon Dioxide 26 (21-32) mEq/L Anion Gap 14.5 (5-15) BUN 13 (7-18) mg/dL Creatinine 1.1 (0.7-1.3) mg/dL Est Cr Clr Drug Dosing 91.12 mL/min Estimated GFR (MDRD) > 60 (>60) mL/min BUN/Creatinine Ratio 11.8 L (14-18) Glucose 124 H (70-99) mg/dL POC Glucose (70-99) mg/dL Hemoglobin A1c ( - 5.6) % Lactic Acid (0.4-2.0) mmol/L Calcium 7.9 L (8.5-10.1) mg/dL Magnesium (1.8-2.4) mg/dL Ferritin (26-388) ng/ml Total Bilirubin 0.9 (0.2-1.0) mg/dL Direct Bilirubin (0.0-0.2) mg/dl Indirect Bilirubin AST 99 H (15-37) U/L ALT 89 H (16-63) U/L Alkaline Phosphatase 107 (46-116) U/L Lactate Dehydrogenase 584 H (85-227) U/L Troponin I < 0.017 (0.00-0.056) ng/mL C-Reactive Protein 12.2 H* (<1.0) mg/dL Total Protein 7.2 (6.4-8.2) g/dl Albumin 3.4 (3.4-5.0) g/dl Globulin 3.8 gm/dL Albumin/Globulin Ratio 0.9 L (1-2) Vitamin D 25-Hydroxy (30.0-100.0) ng/ml SARS-CoV-2 RNA ([facility]IO) (NEGATIVE) 12/09/20 12/09/20 12/09/20 Range/Units 13:20 13:20 13:20 WBC (4.23-9.07) K/mm3 RBC (4.63-6.08) M/mm3 Hgb (13.7-17.5) gm/dl Hct (40.1-51.0) % MCV (79.0-92.2) fl MCH (25.7-32.2) pg MCHC (32.2-35.5) g/dl RDW Std Deviation (35.1-43.9) fL Plt Count (163-337) K/mm3 MPV (9.4-12.3) fl Neut % (Auto) (34.0-67.9) % Lymph % (Auto) (21.8-53.1) % Angelina % (Auto) (5.3-12.2) % Eos % (Auto) (0.8-7.0) Baso % (Auto) (0.1-1.2) % Neut # (Auto) (1.78-5.38) K/mm3 Lymph # (Auto) (1.32-3.57) K/mm3 Angelina # (Auto) (0.30-0.82) K/mm3 Eos # (Auto) (0.04-0.54) K/mm3 Baso # (Auto) (0.01-0.08) K/mm3 Manual Slide Review PT (9.7-12.0) SECONDS INR APTT (21.7-31.4) SECONDS D-Dimer, Quantitative (0.19-0.50) mg/L Sodium (136-145) mEq/L Potassium (3.5-5.1) mEq/L Chloride (98-107) mEq/L Carbon Dioxide (21-32) mEq/L Anion Gap (5-15) BUN (7-18) mg/dL Creatinine (0.7-1.3) mg/dL Est Cr Clr Drug Dosing mL/min Estimated GFR (MDRD) (>60) mL/min BUN/Creatinine Ratio (14-18) Glucose (70-99) mg/dL POC Glucose (70-99) mg/dL Hemoglobin A1c ( - 5.6) % Lactic Acid 1.2 (0.4-2.0) mmol/L Calcium (8.5-10.1) mg/dL Magnesium (1.8-2.4) mg/dL Ferritin 3787 H (26-388) ng/ml Total Bilirubin (0.2-1.0) mg/dL Direct Bilirubin (0.0-0.2) mg/dl Indirect Bilirubin AST (15-37) U/L ALT (16-63) U/L Alkaline Phosphatase (46-116) U/L Lactate Dehydrogenase (85-227) U/L Troponin I (0.00-0.056) ng/mL C-Reactive Protein (<1.0) mg/dL Total Protein (6.4-8.2) g/dl Albumin (3.4-5.0) g/dl Globulin gm/dL Albumin/Globulin Ratio (1-2) Vitamin D 25-Hydroxy (30.0-100.0) ng/ml SARS-CoV-2 RNA (VIRGILIO) Positive H (NEGATIVE) 12/09/20 12/09/20 12/09/20 Range/Units 13:20 13:20 13:20 WBC (4.23-9.07) K/mm3 RBC (4.63-6.08) M/mm3 Hgb (13.7-17.5) gm/dl Hct (40.1-51.0) % MCV (79.0-92.2) fl MCH (25.7-32.2) pg MCHC (32.2-35.5) g/dl RDW Std Deviation (35.1-43.9) fL Plt Count (163-337) K/mm3 MPV (9.4-12.3) fl Neut % (Auto) (34.0-67.9) % Lymph % (Auto) (21.8-53.1) % Angelina % (Auto) (5.3-12.2) % Eos % (Auto) (0.8-7.0) Baso % (Auto) (0.1-1.2) % Neut # (Auto) (1.78-5.38) K/mm3 Lymph # (Auto) (1.32-3.57) K/mm3 Angelina # (Auto) (0.30-0.82) K/mm3 Eos # (Auto) (0.04-0.54) K/mm3 Baso # (Auto) (0.01-0.08) K/mm3 Manual Slide Review PT (9.7-12.0) SECONDS INR APTT (21.7-31.4) SECONDS D-Dimer, Quantitative (0.19-0.50) mg/L Sodium (136-145) mEq/L Potassium (3.5-5.1) mEq/L Chloride (98-107) mEq/L Carbon Dioxide (21-32) mEq/L Anion Gap (5-15) BUN (7-18) mg/dL Creatinine (0.7-1.3) mg/dL Est Cr Clr Drug Dosing mL/min Estimated GFR (MDRD) (>60) mL/min BUN/Creatinine Ratio (14-18) Glucose (70-99) mg/dL POC Glucose (70-99) mg/dL Hemoglobin A1c 6.1 H ( - 5.6) % Lactic Acid (0.4-2.0) mmol/L Calcium (8.5-10.1) mg/dL Magnesium 2.0 (1.8-2.4) mg/dL Ferritin (26-388) ng/ml Total Bilirubin 0.9 (0.2-1.0) mg/dL Direct Bilirubin 0.30 H (0.0-0.2) mg/dl Indirect Bilirubin 0.60 AST 101 H (15-37) U/L ALT 90 H (16-63) U/L Alkaline Phosphatase 106 (46-116) U/L Lactate Dehydrogenase (85-227) U/L Troponin I (0.00-0.056) ng/mL C-Reactive Protein (<1.0) mg/dL Total Protein 7.3 (6.4-8.2) g/dl Albumin 3.5 (3.4-5.0) g/dl Globulin 3.8 gm/dL Albumin/Globulin Ratio 0.9 L (1-2) Vitamin D 25-Hydroxy (30.0-100.0) ng/ml SARS-CoV-2 RNA (VIRGILIO) (NEGATIVE) 12/09/20 12/09/20 12/10/20 Range/Units 13:20 17:50 06:12 WBC 5.50 (4.23-9.07) K/mm3 RBC 4.93 (4.63-6.08) M/mm3 Hgb 14.8 (13.7-17.5) gm/dl Hct 42.9 (40.1-51.0) % MCV 87.0 (79.0-92.2) fl MCH 30.0 (25.7-32.2) pg MCHC 34.5 (32.2-35.5) g/dl RDW Std Deviation 38.3 (35.1-43.9) fL Plt Count 268 (163-337) K/mm3 MPV 10.2 (9.4-12.3) fl Neut % (Auto) 72.4 H (34.0-67.9) % Lymph % (Auto) 18.9 L (21.8-53.1) % Angelina % (Auto) 7.8 (5.3-12.2) % Eos % (Auto) 0 L (0.8-7.0) Baso % (Auto) 0.5 (0.1-1.2) % Neut # (Auto) 3.98 (1.78-5.38) K/mm3 Lymph # (Auto) 1.04 L (1.32-3.57) K/mm3 Angelina # (Auto) 0.43 (0.30-0.82) K/mm3 Eos # (Auto) 0.00 L (0.04-0.54) K/mm3 Baso # (Auto) 0.03 (0.01-0.08) K/mm3 Manual Slide Review Normal smear PT (9.7-12.0) SECONDS INR APTT (21.7-31.4) SECONDS D-Dimer, Quantitative (0.19-0.50) mg/L Sodium (136-145) mEq/L Potassium (3.5-5.1) mEq/L Chloride (98-107) mEq/L Carbon Dioxide (21-32) mEq/L Anion Gap (5-15) BUN (7-18) mg/dL Creatinine (0.7-1.3) mg/dL Est Cr Clr Drug Dosing mL/min Estimated GFR (MDRD) (>60) mL/min BUN/Creatinine Ratio (14-18) Glucose (70-99) mg/dL POC Glucose 132 H (70-99) mg/dL Hemoglobin A1c ( - 5.6) % Lactic Acid (0.4-2.0) mmol/L Calcium (8.5-10.1) mg/dL Magnesium (1.8-2.4) mg/dL Ferritin (26-388) ng/ml Total Bilirubin (0.2-1.0) mg/dL Direct Bilirubin (0.0-0.2) mg/dl Indirect Bilirubin AST (15-37) U/L ALT (16-63) U/L Alkaline Phosphatase (46-116) U/L Lactate Dehydrogenase (85-227) U/L Troponin I (0.00-0.056) ng/mL C-Reactive Protein (<1.0) mg/dL Total Protein (6.4-8.2) g/dl Albumin (3.4-5.0) g/dl Globulin gm/dL Albumin/Globulin Ratio (1-2) Vitamin D 25-Hydroxy 19.9 L (30.0-100.0) ng/ml SARS-CoV-2 RNA ([facility]IO) (NEGATIVE) 12/10/20 Range/Units 06:12 WBC (4.23-9.07) K/mm3 RBC (4.63-6.08) M/mm3 Hgb (13.7-17.5) gm/dl Hct (40.1-51.0) % MCV (79.0-92.2) fl MCH (25.7-32.2) pg MCHC (32.2-35.5) g/dl RDW Std Deviation (35.1-43.9) fL Plt Count (163-337) K/mm3 MPV (9.4-12.3) fl Neut % (Auto) (34.0-67.9) % Lymph % (Auto) (21.8-53.1) % Angelina % (Auto) (5.3-12.2) % Eos % (Auto) (0.8-7.0) Baso % (Auto) (0.1-1.2) % Neut # (Auto) (1.78-5.38) K/mm3 Lymph # (Auto) (1.32-3.57) K/mm3 Angelina # (Auto) (0.30-0.82) K/mm3 Eos # (Auto) (0.04-0.54) K/mm3 Baso # (Auto) (0.01-0.08) K/mm3 Manual Slide Review PT (9.7-12.0) SECONDS INR APTT (21.7-31.4) SECONDS D-Dimer, Quantitative (0.19-0.50) mg/L Sodium 135 L (136-145) mEq/L Potassium 4.1 (3.5-5.1) mEq/L Chloride 98 (98-107) mEq/L Carbon Dioxide 23 (21-32) mEq/L Anion Gap 18.1 H (5-15) BUN 13 (7-18) mg/dL Creatinine 0.9 (0.7-1.3) mg/dL Est Cr Clr Drug Dosing 111.37 mL/min Estimated GFR (MDRD) > 60 (>60) mL/min BUN/Creatinine Ratio 14.4 (14-18) Glucose 123 H (70-99) mg/dL POC Glucose (70-99) mg/dL Hemoglobin A1c ( - 5.6) % Lactic Acid (0.4-2.0) mmol/L Calcium 8.1 L (8.5-10.1) mg/dL Magnesium 2.3 (1.8-2.4) mg/dL Ferritin (26-388) ng/ml Total Bilirubin 0.7 (0.2-1.0) mg/dL Direct Bilirubin (0.0-0.2) mg/dl Indirect Bilirubin AST 73 H (15-37) U/L ALT 78 H (16-63) U/L Alkaline Phosphatase 92 (46-116) U/L Lactate Dehydrogenase (85-227) U/L Troponin I (0.00-0.056) ng/mL C-Reactive Protein 14.6 H* (<1.0) mg/dL Total Protein 7.0 (6.4-8.2) g/dl Albumin 3.1 L (3.4-5.0) g/dl Globulin 3.9 gm/dL Albumin/Globulin Ratio 0.8 L (1-2) Vitamin D 25-Hydroxy (30.0-100.0) ng/ml SARS-CoV-2 RNA ([facility]IO) (NEGATIVE) Result Diagrams: 12/10/20 06:12 12/10/20 06:12 Sepsis Event Note - Evaluation Sepsis Screening Result: No Definite Risk - Focused Exam Vital Signs: Vital Signs Temp Pulse Resp BP Pulse Ox Pulse Ox 12/10/20 10:29 132/70 12/10/20 09:44 91 L 12/10/20 07:52 98.4 F 65 20 132/70 95 12/10/20 04:40 98.1 F 58 L 16 131/89 98 - Problem List & Annotations (1) Acute respiratory failure with hypoxia SNOMED Code(s): 15979312, 229344622 Code(s): J96.01 - ACUTE RESPIRATORY FAILURE WITH HYPOXIA Status: Acute Priority: High Current Visit: Yes (2) COVID-19 SNOMED Code(s): 866222744 Code(s): U07.1 - COVID-19 Status: Acute Priority: High Current Visit: Yes (3) Elevated d-dimer SNOMED Code(s): 324803652 Code(s): R79.89 - OTHER SPECIFIED ABNORMAL FINDINGS OF BLOOD CHEMISTRY Status: Acute Priority: High Current Visit: Yes (4) Hyperglycemia SNOMED Code(s): 77139194 Code(s): R73.9 - HYPERGLYCEMIA, UNSPECIFIED Status: Acute Priority: Medium Current Visit: Yes (5) Hypocalcemia SNOMED Code(s): 6467445 Code(s): E83.51 - HYPOCALCEMIA Status: Acute Priority: Medium Current Visit: Yes (6) Hypokalemia SNOMED Code(s): 03441872 Code(s): E87.6 - HYPOKALEMIA Status: Acute Priority: Medium Current Visit: Yes (7) Hyponatremia SNOMED Code(s): 41392724 Code(s): E87.1 - HYPO-OSMOLALITY AND HYPONATREMIA Status: Acute Priority: Medium Current Visit: Yes (8) Pneumonia due to 2019 novel coronavirus SNOMED Code(s): 850167714204231836 Code(s): U07.1 - COVID-19; J12.82 - PNEUMONIA DUE TO CORONAVIRUS DISEASE 2019 Status: Acute Priority: High Current Visit: Yes (9) Transaminitis SNOMED Code(s): 993046507, 202860687 Code(s): R74.01 - ELEVATION OF LEVELS OF LIVER TRANSAMINASE LEVELS Status: Acute Priority: High Current Visit: Yes (10) Obesity SNOMED Code(s): 482352793, 361539857 Code(s): E66.9 - OBESITY, UNSPECIFIED Status: Chronic Priority: Medium Current Visit: Yes Qualifiers: Obesity type: unspecified obesity type Obesity classification: adult class 1 (BMI 30 - 34.9) Serious obesity comorbidity presence: without serious comorbidity Body mass index: BMI 33.0-33.9 Qualified Code(s): E66.9 - Obesity, unspecified; Z68.33 - Body mass index [BMI] 33.0-33.9, adult (11) HTN (hypertension) SNOMED Code(s): 96312981 Code(s): I10 - ESSENTIAL (PRIMARY) HYPERTENSION Status: Chronic Priority: Low Current Visit: No Qualifiers: Hypertension type: unspecified Qualified Code(s): I10 - Essential (primary) hypertension - Problem List Review Problem List Initiated/Reviewed/Updated: Yes - My Orders Last 24 Hours: My Active Orders 12/10/20 16:30 Remdesivir 100 mg Sodium Chloride 0.9% [Normal Saline] 100 ml IV Q24H - Assessment Assessment:: Assessment - Day of admission, 12/09/2020 45-year-old male presents to ED from [facility] with low oxygen saturations. Reports onset of symptoms 10 to 12 days ago. Reports history of cough, generalized weakness, diarrhea, chills, fever, and shortness of breath. Was reportedly seen in walk-in clinic on 12/06/2020 with negative Covid test and negative chest x-ray. Noted to have saturations of 85% on room air in ED. History of high blood pressure on losartan. Twelve-lead EKG shows a sinus rhythm at 86 bpm with no ectopy or ST changes. Labs in ED: WBC 7.59. Hemoglobin 15.0. Platelet 259,000. Neutrophils elevated at 80.9%. INR 1.02. D-dimer 1.03. Sodium 132. Potassium 3.5. Chloride 95. Carbon dioxide 26. Anion gap 14.5. BUN 13. Creatinine 1.1. GFR greater than 60. Glucose 124. Calcium 7.9. Total bilirubin 0.9. AST 99, ALT 89, alkaline phosphatase 107. LDH 584. Troponin less than 0.017. CRP 12.2. Albumin 3.4. SARS Covid 2 RNA positive. Lactic acid 1.2. Ferritin 3787. Chest x-ray obtained shows bilateral infiltrates consistent with COVID-19. Formal radiologist read is pending. He is given a 1 L fluid bolus in the ED and started on 200 mg remdesivir. Also given 6 mg dexamethasone. Subsequently admitted to the medical floor on telemetry for management of C OVID-19 pneumonia and electrolyte abnormalities. Labs on floor: Magnesium 2.0 A1C 6.1% 12/10/[address] of the chest: 1. Pulmonary arteries are not optimally opacified. No findings of pulmonary embolism are seen within the main or segmental branches. 2. Diffuse parenchymal densities within both sides of the chest compatible with diffuse COVID-19 pneumonia. Reports feeling better today. Cough is significantly decreased. Significantly less shortness of breath noted. Did have diarrhea throughout the night. Patient was on 4 L of oxygen per nasal cannula throughout the night however this morning he is on 1 L per nasal cannula. He denies shortness of breath. On day 2 of Remdesivir, Rocephin, Zithromax and Dexamethasone. Temperature max of 99.0 in the past 24 hours, vital signs have otherwise been stable. Labs: WBC 7.59->5.50 Hemoglobin 15.0->14.8 Platelet 259,000->263925 Neutrophils elevated at 80.9%->72.4 INR 1.02. D-dimer 1.03. Sodium 132->135 Potassium 3.5->4.1 Chloride 95->98 Carbon dioxide 26->23 Anion gap 14.5->18.1 BUN 13. Creatinine 1.1->0.9 GFR greater than 60. Glucose 124->123 Calcium 7.9->8.1 Total bilirubin 0.9->0.7 AST 101->73 ALT 90->78, alkaline phosphatase 106->92. LDH 584. Troponin less than 0.017. CRP 12.2->14.6 Albumin 3.5->3.1 SARS Covid 2 RNA positive. Lactic acid 1.2. Ferritin 3787. - Plan Plan:: Assessment - Day of admission, 12/09/2020 * 45-year-old male presents to ED from [facility] with low oxygen saturations. * Reports onset of symptoms 10 to 12 days ago. * Reports history of cough, generalized weakness, diarrhea, chills, fever, and shortness of breath. * Was reportedly seen in walk-in clinic on 12/06/2020 with negative Covid test and negative chest x-ray. * Noted to have saturations of 85% on room air in ED. * History of high blood pressure on losartan. * Twelve-lead EKG shows a sinus rhythm at 86 bpm with no ectopy or ST changes. * Labs in ED: * WBC 7.59. * Hemoglobin 15.0. * Platelet 259,000. * Neutrophils elevated at 80.9%. * INR 1.02. * D-dimer 1.03. * Sodium 132. * Potassium 3.5. * Chloride 95. * Carbon dioxide 26. * Anion gap 14.5. * BUN 13. Creatinine 1.1. GFR greater than 60. * Glucose 124. * Calcium 7.9. * Total bilirubin 0.9. * AST 99, ALT 89, alkaline phosphatase 107. * LDH 584. * Troponin less than 0.017. * CRP 12.2. * Albumin 3.4. * SARS Covid 2 RNA positive. * Lactic acid 1.2. * Ferritin 3787. * Chest x-ray obtained shows bilateral infiltrates consistent with COVID-19. Formal radiologist read is pending. * He is given a 1 L fluid bolus in the ED and started on 200 mg remdesivir. Also given 6 mg dexamethasone. * Subsequently admitted to the medical floor on telemetry for management of COVID-19 pneumonia and electrolyte abnormalities. * Labs on floor: * Magnesium 2.0 * A1C 6.1% PLAN: Acute respiratory failure with hypoxia Pneumonia due to 2019 novel coronavirus Elevated d-dimer * CTA of chest was negative * O2 as needed to keep saturations 88-95% * IS/Acapella * PRN Albuterol inhaler * Droplet/contact isolation * Remdesivir - day 08/31 * Rocephin 2gm - day 08/31 * Azithromycin 500mg - day 08/29 * Ambulate in room * Prone whenever able * Dexamethasone 6mg - day 09/05 * Will hold off PT/OT for now * Famotidine 20mg BID * Start ASA 81mg * Lovenox 40mg * D-Dimer Q48 hrs * Daily CBC, CMP, Magnesium * Telemetry with continuous pulse oximeter * Supplement zinc and vitamin D * Check vitamin D level Transaminitis * Caution with Remdesivir * Monitor daily CMP * Likely worsened by COVID-19 Prediabetic - A1C 6.1% Hyperglycemia Obesity * Internet Sales [employer] consult * Diabetic diet * Check blood glucose BID (AM with lab draw and 1700 bedside) * Monitor need for sliding scale insulin * Anticipate elevation in blood glucose readings with steroid Hypocalcemia Hyponatremia Hypokalemia * resolving * IV fluids given in ED * Calcium carbonate 600mg BID AC * Monitor CMP HTN (hypertension) * Hold home lisinopril for now * Monitor BP Code status: CPR only - Do not intubate (confirmed with patient on 12/09/2020) PCP: Dr. Feldman DVT Prophylaxis: Lovenox Disposition: Admitted inpatient to medical floor with telemetry for management of COVID-19 pneumonia and electrolyte abnormalities. Likely length of stay 5 days for COVID-19 treatment.
[2020-12-10] MEDS: REMDESIVIR 100 MG in Sodium Chloride 0.9% 100 ML IV SCH (16:36)
[2020-12-10] MEDS: Azithromycin 500 MG in Sodium Chloride 0.9% 250 ML IV SCH (18:50)
[2020-12-10] MEDS: cefTRIAXone 2 GM in Sodium Chloride 0.9% 100 ML IV SCH (20:29)
[2020-12-11] MEDS: Calcium Carbonate 600 MG Tab PO SCH ×2 (06:11→17:37)
[2020-12-11] MEDS: Aspirin 81 MG Tab.Chew PO SCH (08:02)
[2020-12-11] MEDS: Losartan 25 MG Tab PO SCH (08:02)
[2020-12-11] MEDS: Cholecalciferol (Vitamin D3) 5,000 UNIT Cap PO SCH (08:02)
[2020-12-11] MEDS: Zinc Sulfate 220 MG Cap PO SCH (08:04)
[2020-12-11] MEDS: Famotidine 20 MG Tab PO SCH ×2 (08:05→20:03)
[2020-12-11] MEDS: Enoxaparin 40 MG/0.4 ML Syringe SUBCUT SCH (08:05)
[2020-12-11] MEDS: Dexamethasone 4 MG Tab PO SCH (08:05)
[2020-12-11] MEDS: Acetaminophen 325 MG Tab PO PRN (12:23)
--- NOTE | 2020-12-11 13:07 | PCM.PN ---
<MyronKarina M - Last Filed: 12/11/20 13:12> - General Info Date of Service: 12/11/20 Admission Dx/Problem (Free Text): hypoxia Subjective Update: Alcides states that he is feeling more tired today. Had debated sending him home today however I wanted to see how he did on room air. His O2 saturations on room air are 87 to 88%. He has had a low-grade temp of 99 3 throughout the day. I did discuss this with the patient and though he states he feels like he would do better at home he is agreeable to stay. Did discuss the fact that if you did go home today he would need to go home on oxygen and by tomorrow he may be on room air. Functional Status: Reports: Pain Controlled, Tolerating Diet, Ambulating, Urinating, Incentive Spirometry - Review of Systems General: Reports: Fever (Low-grade temp of 99.3), Fatigue, Appetite. Denies: Chills HEENT: Reports: No Symptoms Pulmonary: Reports: Shortness of Breath (With exertion), Cough. Denies: Sputum, Wheezing Cardiovascular: Reports: Dyspnea on Exertion. Denies: Chest Pain, Palpitations, Orthopnea, Edema, Lightheadedness Gastrointestinal: Reports: Diarrhea (States that his diarrhea has decreased significantly), Nausea. Denies: Abdominal Pain, Vomiting Genitourinary: Reports: No Symptoms Musculoskeletal: Reports: No Symptoms Skin: Reports: No Symptoms Neurological: Reports: No Symptoms Psychiatric: Reports: No Symptoms - Patient Data Vitals - Most Recent: Last Vital Signs Temp 99.3 F 12/11/20 12:23 Pulse 79 12/11/20 12:25 Resp 16 12/11/20 11:52 BP 136/66 12/11/20 11:52 Pulse Ox 90 L 12/11/20 12:25 Weight - Most Recent: 244 lb 1.6 oz I&O - Last 24 Hours: Intake & Output 12/10/20 12/11/20 12/11/20 22:59 06:59 14:59 Intake Total 2260 1000 Output Total 450 Balance 2260 550 Lab Results Last 24 Hours: Laboratory Results - last 24 hr 12/10/20 12/11/20 12/11/20 Range/Units 18:37 04:51 04:51 WBC 7.97 (4.23-9.07) K/mm3 RBC 4.75 (4.63-6.08) M/mm3 Hgb 14.4 (13.7-17.5) gm/dl Hct 41.1 (40.1-51.0) % MCV 86.5 (79.0-92.2) fl MCH 30.3 (25.7-32.2) pg MCHC 35.0 (32.2-35.5) g/dl RDW Std Deviation 37.8 (35.1-43.9) fL Plt Count 310 (163-337) K/mm3 MPV 10.5 (9.4-12.3) fl Neut % (Auto) 76.5 H (34.0-67.9) % Lymph % (Auto) 15.3 L (21.8-53.1) % [place] % (Auto) 7.3 (5.3-12.2) % Eos % (Auto) 0.1 L (0.8-7.0) Baso % (Auto) 0.3 (0.1-1.2) % Neut # (Auto) 6.10 H (1.78-5.38) K/mm3 Lymph # (Auto) 1.22 L (1.32-3.57) K/mm3 [place] # (Auto) 0.58 (0.30-0.82) K/mm3 Eos # (Auto) 0.01 L (0.04-0.54) K/mm3 Baso # (Auto) 0.02 (0.01-0.08) K/mm3 Manual Slide Review Normal smear D-Dimer, Quantitative (0.19-0.50) mg/L Sodium 138 (136-145) mEq/L Potassium 3.7 (3.5-5.1) mEq/L Chloride 102 (98-107) mEq/L Carbon Dioxide 26 (21-32) mEq/L Anion Gap 13.7 (5-15) BUN 14 (7-18) mg/dL Creatinine 0.9 (0.7-1.3) mg/dL Est Cr Clr Drug Dosing 111.37 mL/min Estimated GFR (MDRD) > 60 (>60) mL/min BUN/Creatinine Ratio 15.6 (14-18) Glucose 110 H (70-99) mg/dL POC Glucose 175 H (70-99) mg/dL Calcium 7.8 L (8.5-10.1) mg/dL Magnesium 1.9 (1.8-2.4) mg/dL Total Bilirubin 0.6 (0.2-1.0) mg/dL AST 50 H (15-37) U/L ALT 57 (16-63) U/L Alkaline Phosphatase 84 (46-116) U/L C-Reactive Protein 6.7 H* (<1.0) mg/dL Total Protein 6.6 (6.4-8.2) g/dl Albumin 2.9 L (3.4-5.0) g/dl Globulin 3.7 gm/dL Albumin/Globulin Ratio 0.8 L (1-2) 12/11/20 Range/Units 04:51 WBC (4.23-9.07) K/mm3 RBC (4.63-6.08) M/mm3 Hgb (13.7-17.5) gm/dl Hct (40.1-51.0) % MCV (79.0-92.2) fl MCH (25.7-32.2) pg MCHC (32.2-35.5) g/dl RDW Std Deviation (35.1-43.9) fL Plt Count (163-337) K/mm3 MPV (9.4-12.3) fl Neut % (Auto) (34.0-67.9) % Lymph % (Auto) (21.8-53.1) % [place] % (Auto) (5.3-12.2) % Eos % (Auto) (0.8-7.0) Baso % (Auto) (0.1-1.2) % Neut # (Auto) (1.78-5.38) K/mm3 Lymph # (Auto) (1.32-3.57) K/mm3 [place] # (Auto) (0.30-0.82) K/mm3 Eos # (Auto) (0.04-0.54) K/mm3 Baso # (Auto) (0.01-0.08) K/mm3 Manual Slide Review D-Dimer, Quantitative 1.48 H (0.19-0.50) mg/L Sodium (136-145) mEq/L Potassium (3.5-5.1) mEq/L Chloride (98-107) mEq/L Carbon Dioxide (21-32) mEq/L Anion Gap (5-15) BUN (7-18) mg/dL Creatinine (0.7-1.3) mg/dL Est Cr Clr Drug Dosing mL/min Estimated GFR (MDRD) (>60) mL/min BUN/Creatinine Ratio (14-18) Glucose (70-99) mg/dL POC Glucose (70-99) mg/dL Calcium (8.5-10.1) mg/dL Magnesium (1.8-2.4) mg/dL Total Bilirubin (0.2-1.0) mg/dL AST (15-37) U/L ALT (16-63) U/L Alkaline Phosphatase (46-116) U/L C-Reactive Protein (<1.0) mg/dL Total Protein (6.4-8.2) g/dl Albumin (3.4-5.0) g/dl Globulin gm/dL Albumin/Globulin Ratio (1-2) Med Orders - Current: Current Medications Acetaminophen (Acetaminophen 325 Mg Tab) 650 mg PO Q4H PRN PRN Reason: Pain (Mild 1-3)/fever Last Admin: 12/11/20 12:23 Dose: 650 mg Documented by: Albuterol (Albuterol 6.7 Gm Inhaler) 0 gm INH Q2H PRN PRN Reason: SOB/Wheezing Aspirin (Aspirin 81 Mg Tab.Chew) 81 mg PO DAILY [facility] Last Admin: 12/11/20 08:02 Dose: 81 mg Documented by: Calcium Carbonate/Glycine (Calcium Carbonate 600 Mg Tab) 600 mg PO BIDMEALS [facility] Last Admin: 12/11/20 06:11 Dose: 600 mg Documented by: Cholecalciferol (Cholecalciferol (Vitamin D3) 5,000 Unit Cap) 5,000 unit PO DAILY [facility] Last Admin: 12/11/20 08:02 Dose: 5,000 unit Documented by: Dexamethasone (Dexamethasone 4 Mg Tab) 6 mg PO DAILY [facility] Stop: 12/18/20 09:01 Last Admin: 12/11/20 08:05 Dose: 6 mg Documented by: Docusate Sodium (Docusate Sodium 100 Mg Cap) 100 mg PO BID PRN PRN Reason: Constipation Enoxaparin Sodium (Enoxaparin 40 Mg/0.4 Ml Syringe) 40 mg SUBCUT DAILY [facility] Last Admin: 12/11/20 08:05 Dose: 40 mg Documented by: Famotidine (Famotidine 20 Mg Tab) 20 mg PO BID [facility] Last Admin: 12/11/20 08:05 Dose: 20 mg Documented by: Ceftriaxone Sodium 2 gm/ (Sodium Chloride) 100 mls @ 200 mls/hr IV Q24H [facility] Last Admin: 12/10/20 20:29 Dose: 200 mls/hr Documented by: Remdesivir 100 mg/ Sodium (Chloride) 100 mls @ 100 mls/hr IV Q24H [facility] Stop: 12/13/20 17:29 Last Admin: 12/10/20 16:36 Dose: 100 mls/hr Documented by: Azithromycin 500 mg/ Sodium (Chloride) 250 mls @ 250 mls/hr IV Q24H [facility] Stop: 12/11/20 18:59 Last Admin: 12/10/20 18:50 Dose: 250 mls/hr Documented by: Losartan Potassium (Losartan 25 Mg Tab) 25 mg PO DAILY [facility] Last Admin: 12/11/20 08:02 Dose: 25 mg Documented by: Magnesium Hydroxide (Magnesium Hydroxide 400 Mg/5 Ml Susp 30 Ml Cup) 30 ml PO Q12H PRN PRN Reason: Constipation Ondansetron HCl (Ondansetron 4 Mg/2 Ml Sdv) 4 mg IV Q6H PRN PRN Reason: Nausea/Vomiting Last Admin: 12/11/20 09:07 Dose: 4 mg Documented by: Sodium Chloride (Sodium Chloride 0.9% 10 Ml Syringe) 10 ml FLUSH ASDIRECTED PRN PRN Reason: Keep Vein Open Last Admin: 12/09/20 13:25 Dose: 10 ml Documented by: Zinc Sulfate (Zinc Sulfate 220 Mg Cap) 220 mg PO DAILY [facility] Last Admin: 12/11/20 08:04 Dose: 220 mg Documented by: Discontinued Medications Dexamethasone (Dexamethasone 4 Mg/Ml Sdv) 6 mg IVPUSH ONETIME ONE Stop: 12/09/20 15:42 Last Admin: 12/09/20 16:33 Dose: 6 mg Documented by: Famotidine (Famotidine 20 Mg Tab) 20 mg PO DAILY [facility] Sodium Chloride (Normal Saline) 1,000 mls @ 1,000 mls/hr IV .BOLUS [facility] Last Admin: 12/09/20 13:24 Dose: 1,000 mls/hr Documented by: Remdesivir 200 mg/ Sodium (Chloride) 250 mls @ 250 mls/hr IV ONETIME ONE Stop: 12/09/20 15:42 Last Admin: 12/09/20 16:34 Dose: 250 mls/hr Documented by: Azithromycin 500 mg/ Sodium (Chloride) 250 mls @ 250 mls/hr IV Q24H [facility] Stop: 12/11/20 17:14 Last Admin: 12/09/20 18:42 Dose: 250 mls/hr Documented by: Potassium Chloride (Potassium Chloride 20 Meq Tab.Er) 40 meq PO ONETIME ONE Stop: 12/09/20 16:13 Last Admin: 12/09/20 16:37 Dose: 40 meq Documented by: - Exam Quality Assessment: Supplemental Oxygen (1 L per nasal cannula), DVT Prophylaxis (Lovenox) General: Alert, Oriented, Cooperative, No Acute Distress HEENT: Pupils Equal, Mucous Membr. Moist/[place] Neck: Supple, Trachea Midline Lungs: Clear to Auscultation, Normal Respiratory Effort Cardiovascular: Regular Rate, Regular Rhythm GI/Abdominal Exam: Normal Bowel Sounds, Non-Tender, No Distention (Male) Exam: Deferred Back Exam: Normal Inspection Extremities: Normal Inspection, No Pedal Edema Peripheral Pulses: 2+: Radial (L), Radial (R) Skin: Warm, Dry, Intact Neurological: No New Focal Deficit Psy/Mental Status: Alert, Normal Affect, Normal Mood - Patient Data Lab Results Last 24 hrs: Laboratory Results - last 24 hr 12/10/20 12/11/20 12/11/20 Range/Units 18:37 04:51 04:51 WBC 7.97 (4.23-9.07) K/mm3 RBC 4.75 (4.63-6.08) M/mm3 Hgb 14.4 (13.7-17.5) gm/dl Hct 41.1 (40.1-51.0) % MCV 86.5 (79.0-92.2) fl MCH 30.3 (25.7-32.2) pg MCHC 35.0 (32.2-35.5) g/dl RDW Std Deviation 37.8 (35.1-43.9) fL Plt Count 310 (163-337) K/mm3 MPV 10.5 (9.4-12.3) fl Neut % (Auto) 76.5 H (34.0-67.9) % Lymph % (Auto) 15.3 L (21.8-53.1) % [place] % (Auto) 7.3 (5.3-12.2) % Eos % (Auto) 0.1 L (0.8-7.0) Baso % (Auto) 0.3 (0.1-1.2) % Neut # (Auto) 6.10 H (1.78-5.38) K/mm3 Lymph # (Auto) 1.22 L (1.32-3.57) K/mm3 [place] # (Auto) 0.58 (0.30-0.82) K/mm3 Eos # (Auto) 0.01 L (0.04-0.54) K/mm3 Baso # (Auto) 0.02 (0.01-0.08) K/mm3 Manual Slide Review Normal smear D-Dimer, Quantitative (0.19-0.50) mg/L Sodium 138 (136-145) mEq/L Potassium 3.7 (3.5-5.1) mEq/L Chloride 102 (98-107) mEq/L Carbon Dioxide 26 (21-32) mEq/L Anion Gap 13.7 (5-15) BUN 14 (7-18) mg/dL Creatinine 0.9 (0.7-1.3) mg/dL Est Cr Clr Drug Dosing 111.37 mL/min Estimated GFR (MDRD) > 60 (>60) mL/min BUN/Creatinine Ratio 15.6 (14-18) Glucose 110 H (70-99) mg/dL POC Glucose 175 H (70-99) mg/dL Calcium 7.8 L (8.5-10.1) mg/dL Magnesium 1.9 (1.8-2.4) mg/dL Total Bilirubin 0.6 (0.2-1.0) mg/dL AST 50 H (15-37) U/L ALT 57 (16-63) U/L Alkaline Phosphatase 84 (46-116) U/L C-Reactive Protein 6.7 H* (<1.0) mg/dL Total Protein 6.6 (6.4-8.2) g/dl Albumin 2.9 L (3.4-5.0) g/dl Globulin 3.7 gm/dL Albumin/Globulin Ratio 0.8 L (1-2) 12/11/20 Range/Units 04:51 WBC (4.23-9.07) K/mm3 RBC (4.63-6.08) M/mm3 Hgb (13.7-17.5) gm/dl Hct (40.1-51.0) % MCV (79.0-92.2) fl MCH (25.7-32.2) pg MCHC (32.2-35.5) g/dl RDW Std Deviation (35.1-43.9) fL Plt Count (163-337) K/mm3 MPV (9.4-12.3) fl Neut % (Auto) (34.0-67.9) % Lymph % (Auto) (21.8-53.1) % [place] % (Auto) (5.3-12.2) % Eos % (Auto) (0.8-7.0) Baso % (Auto) (0.1-1.2) % Neut # (Auto) (1.78-5.38) K/mm3 Lymph # (Auto) (1.32-3.57) K/mm3 [place] # (Auto) (0.30-0.82) K/mm3 Eos # (Auto) (0.04-0.54) K/mm3 Baso # (Auto) (0.01-0.08) K/mm3 Manual Slide Review D-Dimer, Quantitative 1.48 H (0.19-0.50) mg/L Sodium (136-145) mEq/L Potassium (3.5-5.1) mEq/L Chloride (98-107) mEq/L Carbon Dioxide (21-32) mEq/L Anion Gap (5-15) BUN (7-18) mg/dL Creatinine (0.7-1.3) mg/dL Est Cr Clr Drug Dosing mL/min Estimated GFR (MDRD) (>60) mL/min BUN/Creatinine Ratio (14-18) Glucose (70-99) mg/dL POC Glucose (70-99) mg/dL Calcium (8.5-10.1) mg/dL Magnesium (1.8-2.4) mg/dL Total Bilirubin (0.2-1.0) mg/dL AST (15-37) U/L ALT (16-63) U/L Alkaline Phosphatase (46-116) U/L C-Reactive Protein (<1.0) mg/dL Total Protein (6.4-8.2) g/dl Albumin (3.4-5.0) g/dl Globulin gm/dL Albumin/Globulin Ratio (1-2) Result Diagrams: 12/11/20 04:51 12/11/20 04:51 Sepsis Event Note - Evaluation Sepsis Screening Result: No Definite Risk - Focused Exam Vital Signs: Vital Signs Temp Pulse Resp BP Pulse Ox Pulse Ox 12/11/20 12:25 79 90 L 12/11/20 12:23 99.3 F 12/11/20 11:52 99.3 F 88 16 136/66 91 L 12/11/20 09:14 89 L 12/11/20 08:05 99.3 F 80 14 131/78 92 L 12/11/20 08:02 131/78 12/11/20 04:04 71 90 L 12/11/20 04:03 99.1 F 70 16 116/76 93 L - Problem List & Annotations (1) Acute respiratory failure with hypoxia SNOMED Code(s): 89407885, 570280155 Code(s): J96.01 - ACUTE RESPIRATORY FAILURE WITH HYPOXIA Status: Acute Priority: High Current Visit: Yes (2) COVID-19 SNOMED Code(s): 002198306 Code(s): U07.1 - COVID-19 Status: Acute Priority: High Current Visit: Yes (3) Elevated d-dimer SNOMED Code(s): 317420253 Code(s): R79.89 - OTHER SPECIFIED ABNORMAL FINDINGS OF BLOOD CHEMISTRY Status: Acute Priority: High Current Visit: Yes (4) Hyperglycemia SNOMED Code(s): 06027736 Code(s): R73.9 - HYPERGLYCEMIA, UNSPECIFIED Status: Acute Priority: Med ium Current Visit: Yes (5) Hypocalcemia SNOMED Code(s): 7724323 Code(s): E83.51 - HYPOCALCEMIA Status: Acute Priority: Medium Current Visit: Yes (6) Hypokalemia SNOMED Code(s): 57923270 Code(s): E87.6 - HYPOKALEMIA Status: Acute Priority: Medium Current Visit: Yes (7) Hyponatremia SNOMED Code(s): 98250758 Code(s): E87.1 - HYPO-OSMOLALITY AND HYPONATREMIA Status: Acute Priority: Medium Current Visit: Yes (8) Pneumonia due to 2019 novel coronavirus SNOMED Code(s): 207765346042994171 Code(s): U07.1 - COVID-19; J12.82 - PNEUMONIA DUE TO CORONAVIRUS DISEASE 2019 Status: Acute Priority: High Current Visit: Yes (9) Transaminitis SNOMED Code(s): 578233663, 194476433 Code(s): R74.01 - ELEVATION OF LEVELS OF LIVER TRANSAMINASE LEVELS Status: Acute Priority: High Current Visit: Yes (10) Obesity SNOMED Code(s): 354091868, 616014116 Code(s): E66.9 - OBESITY, UNSPECIFIED Status: Chronic Priority: Medium Current Visit: Yes Qualifiers: Obesity type: unspecified obesity type Obesity classification: adult class 1 (BMI 30 - 34.9) Serious obesity comorbidity presence: without serious comorbidity Body mass index: BMI 33.0-33.9 Qualified Code(s): E66.9 - Obesity, unspecified; Z68.33 - Body mass index [BMI] 33.0-33.9, adult (11) HTN (hypertension) SNOMED Code(s): 11627824 Code(s): I10 - ESSENTIAL (PRIMARY) HYPERTENSION Status: Chronic Priority: Low Current Visit: No Qualifiers: Hypertension type: unspecified Qualified Code(s): I10 - Essential (primary) hypertension - Problem List Review Problem List Initiated/Reviewed/Updated: Yes - My Orders Last 24 Hours: My Active Orders 12/10/20 16:30 Remdesivir 100 mg Sodium Chloride 0.9% [Normal Saline] 100 ml IV Q24H - Assessment Assessment:: Assessment - Day of admission, 12/09/2020 45-year-old male presents to ED from [facility] with low oxygen saturations. Reports onset of symptoms 10 to 12 days ago. Reports history of cough, generalized weakness, diarrhea, chills, fever, and shortness of breath. Was reportedly seen in walk-in clinic on 12/06/2020 with negative Covid test and negative chest x-ray. Noted to have saturations of 85% on room air in ED. History of high blood pressure on losartan. Twelve-lead EKG shows a sinus rhythm at 86 bpm with no ectopy or ST changes. Labs in ED: WBC 7.59. Hemoglobin 15.0. Platelet 259,000. Neutrophils elevated at 80.9%. INR 1.02. D-dimer 1.03. Sodium 132. Potassium 3.5. Chloride 95. Carbon dioxide 26. Anion gap 14.5. BUN 13. Creatinine 1.1. GFR greater than 60. Glucose 124. Calcium 7.9. Total bilirubin 0.9. AST 99, ALT 89, alkaline phosphatase 107. LDH 584. Troponin less than 0.017. CRP 12.2. Albumin 3.4. SARS Covid 2 RNA positive. Lactic acid 1.2. Ferritin 3787. Chest x-ray obtained shows bilateral infiltrates consistent with COVID-19. Formal radiologist read is pending. He is given a 1 L fluid bolus in the ED and started on 200 mg remdesivir. Also given 6 mg dexamethasone. Subsequently admitted to the medical floor on telemetry for management of COVID-19 pneumonia and electrolyte abnormalities. Labs on floor: Magnesium 2.0 A1C 6.1% 12/10/[address] of the chest: 1. Pulmonary arteries are not optimally opacified. No findings of pulmonary embolism are seen within the main or segmental branches. 2. Diffuse parenchymal densities within both sides of the chest compatible with diffuse COVID-19 pneumonia. Reports feeling better today. Cough is significantly decreased. Si gnificantly less shortness of breath noted. Did have diarrhea throughout the night. Patient was on 4 L of oxygen per nasal cannula throughout the night however this morning he is on 1 L per nasal cannula. He denies shortness of breath. On day 2 of Remdesivir, Rocephin, Zithromax and Dexamethasone. Temperature max of 99.0 in the past 24 hours, vital signs have otherwise been stable. Labs: WBC 7.59->5.50 Hemoglobin 15.0->14.8 Platelet 259,000->110674 Neutrophils elevated at 80.9%->72.4 INR 1.02. D-dimer 1.03. Sodium 132->135 Potassium 3.5->4.1 Chloride 95->98 Carbon dioxide 26->23 Anion gap 14.5->18.1 BUN 13. Creatinine 1.1->0.9 GFR greater than 60. Glucose 124->123 Calcium 7.9->8.1 Total bilirubin 0.9->0.7 AST 101->73 ALT 90->78, alkaline phosphatase 106->92. LDH 584. Troponin less than 0.017. CRP 12.2->14.6 Albumin 3.5->3.1 SARS Covid 2 RNA positive. Lactic acid 1.2. Ferritin 3787. 12/11/20 Reports feeling more tired today and has had a low-grade temp Did have some nausea this a.m. and received 1 dose of Zofran which seemed to help States diarrhea is much decreased Still requiring 1 L of oxygen per nasal cannula; was 87 to 88% on room air On day 3 of Rocephin, Zithromax, dexamethasone, and Remdesivir Labs: WBC 7.59->5.50->7.97 Hemoglobin 15.0->14.8->14.4 Platelet 259,000->[id number]->[id number] Neutrophils elevated at 80.9%->72.4->76.5 INR 1.02. D-dimer 1.03->1.48 Sodium 132->135->138 Potassium 3.5->4.1->3.7 Chloride 95->98->102 Carbon dioxide 26->23->26 Anion gap 14.5->18.1->13.7 BUN 13->14 Creatinine 1.1->0.9 GFR greater than 60. Glucose 124->123->110 Calcium 7.9->8.1->7.8 Total bilirubin 0.9->0.7->0.6 AST 101->73->50 ALT 90->78->57, alkaline phosphatase 106->92->84. LDH 584. Troponin less than 0.017. CRP 12.2->14.6->6.7 Albumin 3.5->3.1->2.9 SARS Covid 2 RNA positive. Lactic acid 1.2. Ferritin 3787. - Plan Plan:: Assessment - Day of admission, 12/09/2020 * 45-year-old male presents to ED from [facility] with low oxygen saturations. * Reports onset of symptoms 10 to 12 days ago. * Reports history of cough, generalized weakness, diarrhea, chills, fever, and shortness of breath. * Was reportedly seen in walk-in clinic on 12/06/2020 with negative Covid test and negative chest x-ray. * Noted to have saturations of 85% on room air in ED. * History of high blood pressure on losartan. * Twelve-lead EKG shows a sinus rhythm at 86 bpm with no ectopy or ST changes. * Labs in ED: * WBC 7.59. * Hemoglobin 15.0. * Platelet 259,000. * Neutrophils elevated at 80.9%. * INR 1.02. * D-dimer 1.03. * Sodium 132. * Potassium 3.5. * Chloride 95. * Carbon dioxide 26. * Anion gap 14.5. * BUN 13. Creatinine 1.1. GFR greater than 60. * Glucose 124. * Calcium 7.9. * Total bilirubin 0.9. * AST 99, ALT 89, alkaline phosphatase 107. * LDH 584. * Troponin less than 0.017. * CRP 12.2. * Albumin 3.4. * SARS Covid 2 RNA positive. * Lactic acid 1.2. * Ferritin 3787. * Chest x-ray obtained shows bilateral infiltrates consistent with COVID-19. Formal radiologist read is pending. * He is given a 1 L fluid bolus in the ED and started on 200 mg remdesivir. Also given 6 mg dexamethasone. * Subsequently admitted to the medical floor on telemetry for management of COVID-19 pneumonia and electrolyte abnormalities. * Labs on floor: * Magnesium 2.0 * A1C 6.1% 12/11/20 PLAN: Acute respiratory failure with hypoxia Pneumonia due to 2019 novel coronavirus Elevated d-dimer * O2 as needed to keep saturations 88-95% * IS/Acapella * PRN Albuterol inhaler * Droplet/contact isolation * Remdesivir - day 09/28 * Rocephin 2gm - day 09/28 * Azithromycin 500mg - day 09/26 * Ambulate in room * Prone whenever able * Dexamethasone 6mg - day 10/03 * Famotidine 20mg BID * ASA 81mg * Lovenox 40mg * D-Dimer Q48 hrs * Daily CBC, CMP, Magnesium * Telemetry with continuous pulse oximeter * Supplement zinc and vitamin D * Check vitamin D level Transaminitis * Caution with Remdesivir * Monitor daily CMP * Likely worsened by COVID-19; resolving Prediabetic - A1C 6.1% Hyperglycemia Obesity * [employer] Machine Operator consult * Diabetic diet * Check blood glucose BID (AM with lab draw and 1700 bedside) * Monitor need for sliding scale insulin * Anticipate elevation in blood glucose readings with steroid Hypocalcemia Hyponatremia Hypokalemia * resolving * Calcium carbonate 600mg BID AC * Monitor CMP HTN (hypertension) * Hold home lisinopril for now * Monitor BP Code status: CPR only - Do not intubate (confirmed with patient on 12/09/2020) PCP: Dr. Feldman DVT Prophylaxis: Lovenox Disposition: Admitted inpatient to medical floor with telemetry for management of COVID-19 pneumonia and electrolyte abnormalities. Likely length of stay 5 days for COVID-19 treatment. <Crow Lezama - Last Filed: 12/11/20 14:32> - Patient Data Vitals - Most Recent: Last Vital Signs Temp 98.8 F 12/11/20 14:21 Pulse 79 12/11/20 12:25 Resp 16 12/11/20 11:52 BP 136/66 12/11/20 11:52 Pulse Ox 90 L 12/11/20 12:25 I&O - Last 24 Hours: Intake & Output 12/10/20 12/11/20 12/11/20 22:59 06:59 14:59 Intake Total 2260 1000 Output Total 450 Balance 2260 550 Lab Results Last 24 Hours: Laboratory Results - last 24 hr 12/10/20 12/11/20 12/11/20 Range/Units 18:37 04:51 04:51 WBC 7.97 (4.23-9.07) K/mm3 RBC 4.75 (4.63-6.08) M/mm3 Hgb 14.4 (13.7-17.5) gm/dl Hct 41.1 (40.1-51.0) % MCV 86.5 (79.0-92.2) fl MCH 30.3 (25.7-32.2) pg MCHC 35.0 (32.2-35.5) g/dl RDW Std Deviation 37.8 (35.1-43.9) fL Plt Count 310 (163-337) K/mm3 MPV 10.5 (9.4-12.3) fl Neut % (Auto) 76.5 H (34.0-67.9) % Lymph % (Auto) 15.3 L (21.8-53.1) % [place] % (Auto) 7.3 (5.3-12.2) % Eos % (Auto) 0.1 L (0.8-7.0) Baso % (Auto) 0.3 (0.1-1.2) % Neut # (Auto) 6.10 H (1.78-5.38) K/mm3 Lymph # (Auto) 1.22 L (1.32-3.57) K/mm3 [place] # (Auto) 0.58 (0.30-0.82) K/mm3 Eos # (Auto) 0.01 L (0.04-0.54) K/mm3 Baso # (Auto) 0.02 (0.01-0.08) K/mm3 Manual Slide Review Normal smear D-Dimer, Quantitative (0.19-0.50) mg/L Sodium 138 (136-145) mEq/L Potassium 3.7 (3.5-5.1) mEq/L Chloride 102 (98-107) mEq/L Carbon Dioxide 26 (21-32) mEq/L Anion Gap 13.7 (5-15) BUN 14 (7-18) mg/dL Creatinine 0.9 (0.7-1.3) mg/dL Est Cr Clr Drug Dosing 111.37 mL/min Estimated GFR (MDRD) > 60 (>60) mL/min BUN/Creatinine Ratio 15.6 (14-18) Glucose 110 H (70-99) mg/dL POC Glucose 175 H (70-99) mg/dL Calcium 7.8 L (8.5-10.1) mg/dL Magnesium 1.9 (1.8-2.4) mg/dL Total Bilirubin 0.6 (0.2-1.0) mg/dL AST 50 H (15-37) U/L ALT 57 (16-63) U/L Alkaline Phosphatase 84 (46-116) U/L C-Reactive Protein 6.7 H* (<1.0) mg/dL Total Protein 6.6 (6.4-8.2) g/dl Albumin 2.9 L (3.4-5.0) g/dl Globulin 3.7 gm/dL Albumin/Globulin Ratio 0.8 L (1-2) 12/11/20 Range/Units 04:51 WBC (4.23-9.07) K/mm3 RBC (4.63-6.08) M/mm3 Hgb (13.7-17.5) gm/dl Hct (40.1-51.0) % MCV (79.0-92.2) fl MCH (25.7-32.2) pg MCHC (32.2-35.5) g/dl RDW Std Deviation (35.1-43.9) fL Plt Count (163-337) K/mm3 MPV (9.4-12.3) fl Neut % (Auto) (34.0-67.9) % Lymph % (Auto) (21.8-53.1) % [place] % (Auto) (5.3-12.2) % Eos % (Auto) (0.8-7.0) Baso % (Auto) (0.1-1.2) % Neut # (Auto) (1.78-5.38) K/mm3 Lymph # (Auto) (1.32-3.57) K/mm3 [place] # (Auto) (0.30-0.82) K/mm3 Eos # (Auto) (0.04-0.54) K/mm3 Baso # (Auto) (0.01-0.08) K/mm3 Manual Slide Review D-Dimer, Quantitative 1.48 H (0.19-0.50) mg/L Sodium (136-145) mEq/L Potassium (3.5-5.1) mEq/L Chloride (98-107) mEq/L Carbon Dioxide (21-32) mEq/L Anion Gap (5-15) BUN (7-18) mg/dL Creatinine (0.7-1.3) mg/dL Est Cr Clr Drug Dosing mL/min Estimated GFR (MDRD) (>60) mL/min BUN/Creatinine Ratio (14-18) Glucose (70-99) mg/dL POC Glucose (70-99) mg/dL Calcium (8.5-10.1) mg/dL Magnesium (1.8-2.4) mg/dL Total Bilirubin (0.2-1.0) mg/dL AST (15-37) U/L ALT (16-63) U/L Alkaline Phosphatase (46-116) U/L C-Reactive Protein (<1.0) mg/dL Total Protein (6.4-8.2) g/dl Albumin (3.4-5.0) g/dl Globulin gm/dL Albumin/Globulin Ratio (1-2) Med Orders - Current: Current Medications Acetaminophen (Acetaminophen 325 Mg Tab) 650 mg PO Q4H PRN PRN Reason: Pain (Mild 1-3)/fever Last Admin: 12/11/20 12:23 Dose: 650 mg Documented by: Albuterol (Albuterol 6.7 Gm Inhaler) 0 gm INH Q2H PRN PRN Reason: SOB/Wheezing Aspirin (Aspirin 81 Mg Tab.Chew) 81 mg PO DAILY [facility] Last Admin: 12/11/20 08:02 Dose: 81 mg Documented by: Calcium Carbonate/Glycine (Calcium Carbonate 600 Mg Tab) 600 mg PO BIDMEALS [facility] Last Admin: 12/11/20 06:11 Dose: 600 mg Documented by: Cholecalciferol (Cholecalciferol (Vitamin D3) 5,000 Unit Cap) 5,000 unit PO D AILY [facility] Last Admin: 12/11/20 08:02 Dose: 5,000 unit Documented by: Dexamethasone (Dexamethasone 4 Mg Tab) 6 mg PO DAILY [facility] Stop: 12/18/20 09:01 Last Admin: 12/11/20 08:05 Dose: 6 mg Documented by: Docusate Sodium (Docusate Sodium 100 Mg Cap) 100 mg PO BID PRN PRN Reason: Constipation Enoxaparin Sodium (Enoxaparin 40 Mg/0.4 Ml Syringe) 40 mg SUBCUT DAILY [facility] Last Admin: 12/11/20 08:05 Dose: 40 mg Documented by: Famotidine (Famotidine 20 Mg Tab) 20 mg PO BID [facility] Last Admin: 12/11/20 08:05 Dose: 20 mg Documented by: Ceftriaxone Sodium 2 gm/ (Sodium Chloride) 100 mls @ 200 mls/hr IV Q24H [facility] Last Admin: 12/10/20 20:29 Dose: 200 mls/hr Documented by: Remdesivir 100 mg/ Sodium (Chloride) 100 mls @ 100 mls/hr IV Q24H [facility] Stop: 12/13/20 17:29 Last Admin: 12/10/20 16:36 Dose: 100 mls/hr Documented by: Azithromycin 500 mg/ Sodium (Chloride) 250 mls @ 250 mls/hr IV Q24H [facility] Stop: 12/11/20 18:59 Last Admin: 12/10/20 18:50 Dose: 250 mls/hr Documented by: Losartan Potassium (Losartan 25 Mg Tab) 25 mg PO DAILY [facility] Last Admin: 12/11/20 08:02 Dose: 25 mg Documented by: Magnesium Hydroxide (Magnesium Hydroxide 400 Mg/5 Ml Susp 30 Ml Cup) 30 ml PO Q12H PRN PRN Reason: Constipation Ondansetron HCl (Ondansetron 4 Mg/2 Ml Sdv) 4 mg IV Q6H PRN PRN Reason: Nausea/Vomiting Last Admin: 12/11/20 09:07 Dose: 4 mg Documented by: Sodium Chloride (Sodium Chloride 0.9% 10 Ml Syringe) 10 ml FLUSH ASDIRECTED PRN PRN Reason: Keep Vein Open Last Admin: 12/09/20 13:25 Dose: 10 ml Documented by: Zinc Sulfate (Zinc Sulfate 220 Mg Cap) 220 mg PO DAILY [facility] Last Admin: 12/11/20 08:04 Dose: 220 mg Documented by: Discontinued Medications Dexamethasone (Dexamethasone 4 Mg/Ml Sdv) 6 mg IVPUSH ONETIME ONE Stop: 12/09/20 15:42 Last Admin: 12/09/20 16:33 Dose: 6 mg Documented by: Famotidine (Famotidine 20 Mg Tab) 20 mg PO DAILY [facility] Sodium Chloride (Normal Saline) 1,000 mls @ 1,000 mls/hr IV .BOLUS [facility] Last Admin: 12/09/20 13:24 Dose: 1,000 mls/hr Documented by: Remdesivir 200 mg/ Sodium (Chloride) 250 mls @ 250 mls/hr IV ONETIME ONE Stop: 12/09/20 15:42 Last Admin: 12/09/20 16:34 Dose: 250 mls/hr Documented by: Azithromycin 500 mg/ Sodium (Chloride) 250 mls @ 250 mls/hr IV Q24H [facility] Stop: 12/11/20 17:14 Last Admin: 12/09/20 18:42 Dose: 250 mls/hr Documented by: Potassium Chloride (Potassium Chloride 20 Meq Tab.Er) 40 meq PO ONETIME ONE Stop: 12/09/20 16:13 Last Admin: 12/09/20 16:37 Dose: 40 meq Documented by: - Patient Data Lab Results Last 24 hrs: Laboratory Results - last 24 hr 12/10/20 12/11/20 12/11/20 Range/Units 18:37 04:51 04:51 WBC 7.97 (4.23-9.07) K/mm3 RBC 4.75 (4.63-6.08) M/mm3 Hgb 14.4 (13.7-17.5) gm/dl Hct 41.1 (40.1-51.0) % MCV 86.5 (79.0-92.2) fl MCH 30.3 (25.7-32.2) pg MCHC 35.0 (32.2-35.5) g/dl RDW Std Deviation 37.8 (35.1-43.9) fL Plt Count 310 (163-337) K/mm3 MPV 10.5 (9.4-12.3) fl Neut % (Auto) 76.5 H (34.0-67.9) % Lymph % (Auto) 15.3 L (21.8-53.1) % [place] % (Auto) 7.3 (5.3-12.2) % Eos % (Auto) 0.1 L (0.8-7.0) Baso % (Auto) 0.3 (0.1-1.2) % Neut # (Auto) 6.10 H (1.78-5.38) K/mm3 Lymph # (Auto) 1.22 L (1.32-3.57) K/mm3 [place] # (Auto) 0.58 (0.30-0.82) K/mm3 Eos # (Auto) 0.01 L (0.04-0.54) K/mm3 Baso # (Auto) 0.02 (0.01-0.08) K/mm3 Manual Slide Review Normal smear D-Dimer, Quantitative (0.19-0.50) mg/L Sodium 138 (136-145) mEq/L Potassium 3.7 (3.5-5.1) mEq/L Chloride 102 (98-107) mEq/L Carbon Dioxide 26 (21-32) mEq/L Anion Gap 13.7 (5-15) BUN 14 (7-18) mg/dL Creatinine 0.9 (0.7-1.3) mg/dL Est Cr Clr Drug Dosing 111.37 mL/min Estimated GFR (MDRD) > 60 (>60) mL/min BUN/Creatinine Ratio 15.6 (14-18) Glucose 110 H (70-99) mg/dL POC Glucose 175 H (70-99) mg/dL Calcium 7.8 L (8.5-10.1) mg/dL Magnesium 1.9 (1.8-2.4) mg/dL Total Bilirubin 0.6 (0.2-1.0) mg/dL AST 50 H (15-37) U/L ALT 57 (16-63) U/L Alkaline Phosphatase 84 (46-116) U/L C-Reactive Protein 6.7 H* (<1.0) mg/dL Total Protein 6.6 (6.4-8.2) g/dl Albumin 2.9 L (3.4-5.0) g/dl Globulin 3.7 gm/dL Albumin/Globulin Ratio 0.8 L (1-2) 12/11/20 Range/Units 04:51 WBC (4.23-9.07) K/mm3 RBC (4.63-6.08) M/mm3 Hgb (13.7-17.5) gm/dl Hct (40.1-51.0) % MCV (79.0-92.2) fl MCH (25.7-32.2) pg MCHC (32.2-35.5) g/dl RDW Std Deviation (35.1-43.9) fL Plt Count (163-337) K/mm3 MPV (9.4-12.3) fl Neut % (Auto) (34.0-67.9) % Lymph % (Auto) (21.8-53.1) % [place] % (Auto) (5.3-12.2) % Eos % (Auto) (0.8-7.0) Baso % (Auto) (0.1-1.2) % Neut # (Auto) (1.78-5.38) K/mm3 Lymph # (Auto) (1.32-3.57) K/mm3 [place] # (Auto) (0.30-0.82) K/mm3 Eos # (Auto) (0.04-0.54) K/mm3 Baso # (Auto) (0.01-0.08) K/mm3 Manual Slide Review D-Dimer, Quantitative 1.48 H (0.19-0.50) mg/L Sodium (136-145) mEq/L Potassium (3.5-5.1) mEq/L Chloride (98-107) mEq/L Carbon Dioxide (21-32) mEq/L Anion Gap (5-15) BUN (7-18) mg/dL Creatinine (0.7-1.3) mg/dL Est Cr Clr Drug Dosing mL/min Estimated GFR (MDRD) (>60) mL/min BUN/Creatinine Ratio (14-18) Glucose (70-99) mg/dL POC Glucose (70-99) mg/dL Calcium (8.5-10.1) mg/dL Magnesium (1.8-2.4) mg/dL Total Bilirubin (0.2-1.0) mg/dL AST (15-37) U/L ALT (16-63) U/L Alkaline Phosphatase (46-116) U/L C-Reactive Protein (<1.0) mg/dL Total Protein (6.4-8.2) g/dl Albumin (3.4-5.0) g/dl Globulin gm/dL Albumin/Globulin Ratio (1-2) Result Diagrams: 12/11/20 04:51 12/11/20 04:51 Sepsis Event Note - Focused Exam Vital Signs: Vital Signs Temp Pulse Resp BP Pulse Ox Pulse Ox 12/11/20 14:21 98.8 F 12/11/20 12:25 79 90 L 12/11/20 12:23 99.3 F 12/11/20 11:52 99.3 F 88 16 136/66 91 L 12/11/20 09:14 89 L 12/11/20 08:05 99.3 F 80 14 131/78 92 L 12/11/20 08:02 131/78 12/11/20 04:04 71 90 L 12/11/20 04:03 99.1 F 70 16 116/76 93 L - Plan Plan:: I agree with the assessment and plan.
[2020-12-11] MEDS: REMDESIVIR 100 MG in Sodium Chloride 0.9% 100 ML IV SCH (17:37)
[2020-12-11] MEDS: Azithromycin 500 MG in Sodium Chloride 0.9% 250 ML IV SCH (17:37)
[2020-12-11] MEDS: cefTRIAXone 2 GM in Sodium Chloride 0.9% 100 ML IV SCH (20:03)
[2020-12-12] MEDS: Calcium Carbonate 600 MG Tab PO SCH ×2 (05:25→06:30)
[2020-12-12] MEDS: Acetaminophen 325 MG Tab PO PRN (05:25)
--- NOTE | 2020-12-12 08:05 | PCM.PN ---
- General Info Date of Service: 12/12/20 Admission Dx/Problem (Free Text): hypoxia Functional Status: Reports: Pain Controlled, Tolerating Diet, Ambulating, Urinating, Incentive Spirometry, Other (Acapella ). Denies: New Symptoms - Review of Systems General: Reports: Weakness, Fatigue, Malaise. Denies: Fever, Chills HEENT: Reports: No Symptoms. Denies: Headaches, Sore Throat Pulmonary: Reports: Shortness of Breath, Cough, Sputum. Denies: Pleuritic Chest Pain Cardiovascular: Reports: No Symptoms, Dyspnea on Exertion. Denies: Chest Pain, Palpitations, Edema, Lightheadedness Gastrointestinal: Reports: Nausea. Denies: Abdominal Pain, Constipation, Diarrhea, Vomiting Genitourinary: Reports: No Symptoms. Denies: Pain Musculoskeletal: Reports: No Symptoms Skin: Reports: No Symptoms. Denies: Cyanosis Neurological: Reports: No Symptoms. Denies: Confusion, Pre-Existing Deficit, Difficulty Walking, Gait Disturbance Psychiatric: Reports: No Symptoms - Patient Data Vitals - Most Recent: Last Vital Signs Temp 99.1 F 12/12/20 07:54 Pulse 71 12/12/20 07:54 Resp 20 12/12/20 05:19 BP 101/79 12/12/20 07:54 Pulse Ox 92 L 12/12/20 07:54 Weight - Most Recent: 243 lb 8 oz I&O - Last 24 Hours: Intake & Output 12/11/20 12/12/20 12/12/20 22:59 06:59 14:59 Intake Total 920 1050 Output Total 800 500 Balance 120 550 Lab Results Last 24 Hours: Laboratory Results - last 24 hr 12/11/20 12/12/20 12/12/20 Range/Units 17:44 05:05 05:05 WBC 7.79 (4.23-9.07) K/mm3 RBC 4.55 L (4.63-6.08) M/mm3 Hgb 14.2 (13.7-17.5) gm/dl Hct 39.3 L (40.1-51.0) % MCV 86.4 (79.0-92.2) fl MCH 31.2 (25.7-32.2) pg MCHC 36.1 H (32.2-35.5) g/dl RDW Std Deviation 37.2 (35.1-43.9) fL Plt Count 359 H (163-337) K/mm3 MPV 10.6 (9.4-12.3) fl Neut % (Auto) 75.3 H (34.0-67.9) % Lymph % (Auto) 16.0 L (21.8-53.1) % [place] % (Auto) 7.2 (5.3-12.2) % Eos % (Auto) 0.5 L (0.8-7.0) Baso % (Auto) 0.4 (0.1-1.2) % Neut # (Auto) 5.86 H (1.78-5.38) K/mm3 Lymph # (Auto) 1.25 L (1.32-3.57) K/mm3 [place] # (Auto) 0.56 (0.30-0.82) K/mm3 Eos # (Auto) 0.04 (0.04-0.54) K/mm3 Baso # (Auto) 0.03 (0.01-0.08) K/mm3 Manual Slide Review Normal smear Sodium 138 (136-145) mEq/L Potassium 3.4 L (3.5-5.1) mEq/L Chloride 101 (98-107) mEq/L Carbon Dioxide 24 (21-32) mEq/L Anion Gap 16.4 H (5-15) BUN 12 (7-18) mg/dL Creatinine 0.9 (0.7-1.3) mg/dL Est Cr Clr Drug Dosing 111.37 mL/min Estimated GFR (MDRD) > 60 (>60) mL/min BUN/Creatinine Ratio 13.3 L (14-18) Glucose 105 H (70-99) mg/dL POC Glucose 181 H (70-99) mg/dL Calcium 7.8 L (8.5-10.1) mg/dL Magnesium 1.8 (1.8-2.4) mg/dL Total Bilirubin 0.6 (0.2-1.0) mg/dL AST 40 H (15-37) U/L ALT 45 (16-63) U/L Alkaline Phosphatase 72 (46-116) U/L C-Reactive Protein 9.7 H* (<1.0) mg/dL Total Protein 6.4 (6.4-8.2) g/dl Albumin 2.7 L (3.4-5.0) g/dl Globulin 3.7 gm/dL Albumin/Globulin Ratio 0.7 L (1-2) Med Orders - Current: Current Medications Acetaminophen (Acetaminophen 325 Mg Tab) 650 mg PO Q4H PRN PRN Reason: Pain (Mild 1-3)/fever Last Admin: 12/12/20 05:25 Dose: 650 mg Documented by: Albuterol (Albuterol 6.7 Gm Inhaler) 0 gm INH Q2H PRN PRN Reason: SOB/Wheezing Last Admin: 12/12/20 02:03 Dose: 2 puff Documented by: Aspirin (Aspirin 81 Mg Tab.Chew) 81 mg PO DAILY [facility] Last Admin: 12/11/20 08:02 Dose: 81 mg Documented by: Calcium Carbonate/Glycine (Calcium Carbonate 600 Mg Tab) 600 mg PO BIDMEALS [facility] Last Admin: 12/12/20 06:30 Dose: Not Given Documented by: Cholecalciferol (Cholecalciferol (Vitamin D3) 5,000 Unit Cap) 5,000 unit PO DAILY [facility] Last Admin: 12/11/20 08:02 Dose: 5,000 unit Documented by: Dexamethasone (Dexamethasone 4 Mg Tab) 6 mg PO DAILY [facility] Stop: 12/18/20 09:01 Last Admin: 12/11/20 08:05 Dose: 6 mg Documented by: Docusate Sodium (Docusate Sodium 100 Mg Cap) 100 mg PO BID PRN PRN Reason: Constipation Enoxaparin Sodium (Enoxaparin 40 Mg/0.4 Ml Syringe) 40 mg SUBCUT DAILY [facility] Last Admin: 12/11/20 08:05 Dose: 40 mg Documented by: Famotidine (Famotidine 20 Mg Tab) 20 mg PO BID [facility] Last Admin: 12/11/20 20:03 Dose: 20 mg Documented by: Ceftriaxone Sodium 2 gm/ (Sodium Chloride) 100 mls @ 200 mls/hr IV Q24H [facility] Last Admin: 12/11/20 20:03 Dose: 200 mls/hr Documented by: Remdesivir 100 mg/ Sodium (Chloride) 100 mls @ 100 mls/hr IV Q24H [facility] Stop: 12/13/20 17:29 Last Admin: 12/11/20 17:37 Dose: 100 mls/hr Documented by: Losartan Potassium (Losartan 25 Mg Tab) 25 mg PO DAILY [facility] Last Admin: 12/11/20 08:02 Dose: 25 mg Documented by: Magnesium Hydroxide (Magnesium Hydroxide 400 Mg/5 Ml Susp 30 Ml Cup) 30 ml PO Q12H PRN PRN Reason: Constipation Ondansetron HCl (Ondansetron 4 Mg/2 Ml Sdv) 4 mg IV Q6H PRN PRN Reason: Nausea/Vomiting Last Admin: 12/11/20 09:07 Dose: 4 mg Documented by: Sodium Chloride (Sodium Chloride 0.9% 10 Ml Syringe) 10 ml FLUSH ASDIRECTED PRN PRN Reason: Keep Vein Open Last Admin: 12/09/20 13:25 Dose: 10 ml Documented by: Zinc Sulfate (Zinc Sulfate 220 Mg Cap) 220 mg PO DAILY [facility] Last Admin: 12/11/20 08:04 Dose: 220 mg Documented by: Discontinued Medications Dexamethasone (Dexamethasone 4 Mg/Ml Sdv) 6 mg IVPUSH ONETIME ONE Stop: 12/09/20 15:42 Last Admin: 12/09/20 16:33 Dose: 6 mg Documented by: Famotidine (Famotidine 20 Mg Tab) 20 mg PO DAILY [facility] Sodium Chloride (Normal Saline) 1,000 mls @ 1,000 mls/hr IV .BOLUS [facility] Last Admin: 12/09/20 13:24 Dose: 1,000 mls/hr Documented by: Remdesivir 200 mg/ Sodium (Chloride) 250 mls @ 250 mls/hr IV ONETIME ONE Stop: 12/09/20 15:42 Last Admin: 12/09/20 16:34 Dose: 250 mls/hr Documented by: Azithromycin 500 mg/ Sodium (Chloride) 250 mls @ 250 mls/hr IV Q24H [facility] Stop: 12/11/20 17:14 Last Admin: 12/09/20 18:42 Dose: 250 mls/hr Documented by: Azithromycin 500 mg/ Sodium (Chloride) 250 mls @ 250 mls/hr IV Q24H [facility] Stop: 12/11/20 18:59 Last Admin: 12/11/20 17:37 Dose: 250 mls/hr Documented by: Potassium Chloride (Potassium Chloride 20 Meq Tab.Er) 40 meq PO ONETIME ONE Stop: 12/09/20 16:13 Last Admin: 12/09/20 16:37 Dose: 40 meq Documented by: - Exam Quality Assessment: Supplemental Oxygen (5L ), DVT Prophylaxis. No: Urine Catheter General: Alert, Oriented, Cooperative, No Acute Distress HEENT: Pupils Equal, Pupils Reactive, Mucous Membr. Moist/[place] Neck: Supple, Trachea Midline Lungs: Clear to Auscultation, Normal Respiratory Effort, Decreased Breath Sounds Cardiovascular: Regular Rate, Regular Rhythm GI/Abdominal Exam: Normal Bowel Sounds, Soft, Non-Tender, No Distention (Male) Exam: Deferred Back Exam: Normal Inspection, Full Range of Motion Extremities: Normal Inspection, Normal Range of Motion, Non-Tender, No Pedal Edema, Normal Capillary Refill Peripheral Pulses: 2+: Radial (L), Radial (R), Dorsalis Pedis (L), Dorsalis Pedis (R) Skin: Warm, Dry, Intact Neurological: No New Focal Deficit Psy/Mental Status: Alert, Normal Affect, Normal Mood - Patient Data Lab Results Last 24 hrs: Laboratory Results - last 24 hr 12/11/20 12/12/20 12/12/20 Range/Units 17:44 05:05 05:05 WBC 7.79 (4.23-9.07) K/mm3 RBC 4.55 L (4.63-6.08) M/mm3 Hgb 14.2 (13.7-17.5) gm/dl Hct 39.3 L (40.1-51.0) % MCV 86.4 (79.0-92.2) fl MCH 31.2 (25.7-32.2) pg MCHC 36.1 H (32.2-35.5) g/dl RDW Std Deviation 37.2 (35.1-43.9) fL Plt Count 359 H (163-337) K/mm3 MPV 10.6 (9.4-12.3) fl Neut % (Auto) 75.3 H (34.0-67.9) % Lymph % (Auto) 16.0 L (21.8-53.1) % [place] % (Auto) 7.2 (5.3-12.2) % Eos % (Auto) 0.5 L (0.8-7.0) Baso % (Auto) 0.4 (0.1-1.2) % Neut # (Auto) 5.86 H (1.78-5.38) K/mm3 Lymph # (Auto) 1.25 L (1.32-3.57) K/mm3 [place] # (Auto) 0.56 (0.30-0.82) K/mm3 Eos # (Auto) 0.04 (0.04-0.54) K/mm3 Baso # (Auto) 0.03 (0.01-0.08) K/mm3 Manual Slide Review Normal smear Sodium 138 (136-145) mEq/L Potassium 3.4 L (3.5-5.1) mEq/L Chloride 101 (98-107) mEq/L Carbon Dioxide 24 (21-32) mEq/L Anion Gap 16.4 H (5-15) BUN 12 (7-18) mg/dL Creatinine 0.9 (0.7-1.3) mg/dL Est Cr Clr Drug Dosing 111.37 mL/min Estimated GFR (MDRD) > 60 (>60) mL/min BUN/Creatinine Ratio 13.3 L (14-18) Glucose 105 H (70-99) mg/dL POC Glucose 181 H (70-99) mg/dL Calcium 7.8 L (8.5-10.1) mg/dL Magnesium 1.8 (1.8-2.4) mg/dL Total Bilirubin 0.6 (0.2-1.0) mg/dL AST 40 H (15-37) U/L ALT 45 (16-63) U/L Alkaline Phosphatase 72 (46-116) U/L C-Reactive Protein 9.7 H* (<1.0) mg/dL Total Protein 6.4 (6.4-8.2) g/dl Albumin 2.7 L (3.4-5.0) g/dl Globulin 3.7 gm/dL Albumin/Globulin Ratio 0.7 L (1-2) Result Diagrams: 12/12/20 05:05 12/12/20 05:05 Sepsis Event Note - Evaluation Sepsis Screening Result: No Definite Risk - Focused Exam Vital Signs: Vital Signs Temp Temp Pulse Resp BP Pulse Ox Pulse Ox 12/12/20 07:54 99.1 F 71 101/79 92 L 12/12/20 06:35 98.6 F 12/12/20 05:25 99.9 F 12/12/20 05:19 99.9 F 77 20 140/74 91 L 12/12/20 02:04 88 L 12/11/20 21:33 90 L - Problem List & Annotations (1) HTN (hypertension) SNOMED Code(s): 74184194 Code(s): I10 - ESSENTIAL (PRIMARY) HYPERTENSION Status: Chronic Priority: Low Current Visit: No Qualifiers: Hypertension type: unspecified Qualified Code(s): I10 - Essential (primary) hypertension (2) Acute respiratory failure with hypoxia SNOMED Code(s): 65057173, 077022009 Code(s): J96.01 - ACUTE RESPIRATORY FAILURE WITH HYPOXIA Status: Acute Priority: High Current Visit: Yes (3) Pneumonia due to 2019 novel coronavirus SNOMED Code(s): 445336576100301628 Code(s): U07.1 - COVID-19; J12.82 - PNEUMONIA DUE TO CORONAVIRUS DISEASE 2019 Status: Acute Priority: High Current Visit: Yes (4) Transaminitis SNOMED Code(s): 759533314, 567796361 Code(s): R74.01 - ELEVATION OF LEVELS OF LIVER TRANSAMINASE LEVELS Status: Acute Priority: High Current Visit: Yes (5) Elevated d-dimer SNOMED Code(s): 183368244 Code(s): R79.89 - OTHER SPECIFIED ABNORMAL FINDINGS OF BLOOD CHEMISTRY Status: Acute Priority: High Current Visit: Yes (6) Hypocalcemia SNOMED Code(s): 2159934 Code(s): E83.51 - HYPOCALCEMIA Status: Acute Priority: Medium Current Visit: Yes (7) Hyponatremia SNOMED Code(s): 15439598 Code(s): E87.1 - HYPO-OSMOLALITY AND HYPONATREMIA Status: Resolved Priority: Medium Current Visit: Yes (8) Hypokalemia SNOMED Code(s): 77007104 Code(s): E87.6 - HYPOKALEMIA Status: Acute Priority: Medium Current Vi sit: Yes (9) Hyperglycemia SNOMED Code(s): 31398912 Code(s): R73.9 - HYPERGLYCEMIA, UNSPECIFIED Status: Acute Priority: Medium Current Visit: Yes (10) Obesity SNOMED Code(s): 882880709, 227938104 Code(s): E66.9 - OBESITY, UNSPECIFIED Status: Chronic Priority: Medium Current Visit: Yes Qualifiers: Obesity type: unspecified obesity type Obesity classification: adult class 1 (BMI 30 - 34.9) Serious obesity comorbidity presence: without serious comorbidity Body mass index: BMI 33.0-33.9 Qualified Code(s): E66.9 - Obesity, unspecified; Z68.33 - Body mass index [BMI] 33.0-33.9, adult - Problem List Review Problem List Initiated/Reviewed/Updated: Yes - My Orders Last 24 Hours: My Active Orders 12/13/20 05:11 CBC WITH AUTO DIFF [HEME] AM CMP [COMPREHENSIVE METABOLIC PN,CMP] [CHEM] AM CRP [C-REACTIVE PROTEIN] [CHEM] AM DD [D-DIMER QUANTITATIVE] [COAG] Q48H MAGNESIUM [CHEM] AM 12/14/20 05:11 CBC WITH AUTO DIFF [HEME] AM CMP [COMPREHENSIVE METABOLIC PN,CMP] [CHEM] AM CRP [C-REACTIVE PROTEIN] [CHEM] AM MAGNESIUM [CHEM] AM 12/15/20 05:11 DD [D-DIMER QUANTITATIVE] [COAG] Q48H - Assessment Assessment:: Assessment - Day of admission, 12/09/2020 45-year-old male presents to ED from [facility] with low oxygen saturations. Reports onset of symptoms 10 to 12 days ago. Reports history of cough, generalized weakness, diarrhea, chills, fever, and shortness of breath. Was reportedly seen in walk-in clinic on 12/06/2020 with negative Covid test and negative chest x-ray. Noted to have saturations of 85% on room air in ED. History of high blood pressure on losartan. Twelve-lead EKG shows a sinus rhythm at 86 bpm with no ectopy or ST changes. Labs in ED: WBC 7.59. Hemoglobin 15.0. Platelet 259,000. Neutrophils elevated at 80.9%. INR 1.02. D-dimer 1.03. Sodium 132. Potassium 3.5. Chloride 95. Carbon dioxide 26. Anion gap 14.5. BUN 13. Creatinine 1.1. GFR greater than 60. Glucose 124. Calcium 7.9. Total bilirubin 0.9. AST 99, ALT 89, alkaline phosphatase 107. LDH 584. Troponin less than 0.017. CRP 12.2. Albumin 3.4. SARS Covid 2 RNA positive. Lactic acid 1.2. Ferritin 3787. Chest x-ray obtained shows bilateral infiltrates consistent with COVID-19. Formal radiologist read is pending. He is given a 1 L fluid bolus in the ED and started on 200 mg remdesivir. Also given 6 mg dexamethasone. Subsequently admitted to the medical floor on telemetry for management of COVID-19 pneumonia and electrolyte abnormalities. Labs on floor: Magnesium 2.0 A1C 6.1% 12/10/[address] of the chest: 1. Pulmonary arteries are not optimally opacified. No findings of pulmonary embolism are seen within the main or segmental branches. 2. Diffuse parenchymal densities within both sides of the chest compatible with diffuse COVID-19 pneumonia. Reports feeling better today. Cough is significantly decreased. Signifi cantly less shortness of breath noted. Did have diarrhea throughout the night. Patient was on 4 L of oxygen per nasal cannula throughout the night however this morning he is on 1 L per nasal cannula. He denies shortness of breath. On day 2 of Remdesivir, Rocephin, Zithromax and Dexamethasone. Temperature max of 99.0 in the past 24 hours, vital signs have otherwise been stable. Labs: WBC 7.59->5.50 Hemoglobin 15.0->14.8 Platelet 259,000->[id number] Neutrophils elevated at 80.9%->72.4 INR 1.02. D-dimer 1.03. Sodium 132->135 Potassium 3.5->4.1 Chloride 95->98 Carbon dioxide 26->23 Anion gap 14.5->18.1 BUN 13. Creatinine 1.1->0.9 GFR greater than 60. Glucose 124->123 Calcium 7.9->8.1 Total bilirubin 0.9->0.7 AST 101->73 ALT 90->78, alkaline phosphatase 106->92. LDH 584. Troponin less than 0.017. CRP 12.2->14.6 Albumin 3.5->3.1 SARS Covid 2 RNA positive. Lactic acid 1.2. Ferritin 3787. 12/11/20 Reports feeling more tired today and has had a low-grade temp Did have some nausea this a.m. and received 1 dose of Zofran which seemed to help States diarrhea is much decreased Still requiring 1 L of oxygen per nasal cannula; was 87 to 88% on room air On day 3 of Rocephin, Zithromax, dexamethasone, and Remdesivir Labs: WBC 7.59->5.50->7.97 Hemoglobin 15.0->14.8->14.4 Platelet 259,000->[id number]->[id number] Neutrophils elevated at 80.9%->72.4->76.5 INR 1.02. D-dimer 1.03->1.48 Sodium 132->135->138 Potassium 3.5->4.1->3.7 Chloride 95->98->102 Carbon dioxide 26->23->26 Anion gap 14.5->18.1->13.7 BUN 13->14 Creatinine 1.1->0.9 GFR greater than 60. Glucose 124->123->110 Calcium 7.9->8.1->7.8 Total bilirubin 0.9->0.7->0.6 AST 101->73->50 ALT 90->78->57, alkaline phosphatase 106->92->84. LDH 584. Troponin less than 0.017. CRP 12.2->14.6->6.7 Albumin 3.5->3.1->2.9 SARS Covid 2 RNA positive. Lactic acid 1.2. Ferritin 3787. 12/12/2020 - Plan Plan:: PLAN: Acute respiratory failure with hypoxia Pneumonia due to 2019 novel coronavirus Elevated d-dimer * O2 as needed to keep saturations 88-95% * IS/Acapella * PRN Albuterol inhaler * Droplet/contact isolation * Remdesivir - day 10/29 * Rocephin 2gm - day 10/29 * Azithromycin 500mg - day 10/27 * Ambulate in room * Prone whenever able * Dexamethasone 6mg - day 11/03 * Famotidine 20mg BID * ASA 81mg * Lovenox 40mg * D-Dimer Q48 hrs * Daily CBC, CMP, Magnesium * Telemetry with continuous pulse oximeter * Supplement zinc and vitamin D * Check vitamin D level Transaminitis * Caution with Remdesivir * Monitor daily CMP * Likely worsened by COVID-19; resolving Prediabetic - A1C 6.1% Hyperglycemia Obesity * [employer] consult * Diabetic diet * Check blood glucose BID (AM with lab draw and 1700 bedside) * Monitor need for sliding scale insulin * Anticipate elevation in blood glucose readings with steroid Hypocalcemia Hyponatremia - resolved Hypokalemia * Supplement potassium 40mEq BID x2 doses * Calcium carbonate 600mg BID AC * Monitor CMP HTN (hypertension) * Resume home lisinopril * Monitor BP Code status: CPR only - Do not intubate (confirmed with patient on 12/09/2020) PCP: Dr. Feldman DVT Prophylaxis: Lovenox Disposition: Admitted inpatient to medical floor with telemetry for management of COVID-19 pneumonia and electrolyte abnormalities. Likely length of stay 5 days for COVID-19 treatment.
[2020-12-12] MEDS: Losartan 25 MG Tab PO SCH (08:51)
[2020-12-12] MEDS: Famotidine 20 MG Tab PO SCH (08:52)
[2020-12-12] MEDS: Aspirin 81 MG Tab.Chew PO SCH (08:52)
[2020-12-12] MEDS: Cholecalciferol (Vitamin D3) 5,000 UNIT Cap PO SCH (08:52)
[2020-12-12] MEDS: Enoxaparin 40 MG/0.4 ML Syringe SUBCUT SCH (08:52)
[2020-12-12] MEDS: Zinc Sulfate 220 MG Cap PO SCH (08:52)
[2020-12-12] MEDS: Dexamethasone 4 MG Tab PO SCH (08:52)
[2020-12-12] MEDS ORDERED: Potassium Chloride 20 MEQ Tab.ER PO SCH (09:00)
[2020-12-12] MEDS ORDERED: guaiFENesin/Dextromethorphan 100-10 MG/5 ML Soln 5 ML Cup PO PRN (09:13)
[2020-12-12] MEDS ORDERED: Benzonatate 100 MG Cap PO PRN (09:13)
--- NOTE | 2020-12-12 11:36 | PCM.DCSUM1 ---
Discharge Summary - Hospital Course HPI Initial Comments: This is a 45-year-old male who presents to ED on 12/09/2020 with low oxygen saturations, cough, shortness of breath, and fever. He was reportedly seen at the walk-in clinic this past and they checked him for Covid but he was negative. They did a chest x-ray which look good and gave him some albuterol. Since that time he has had worsening dyspnea on exertion, cough, generalized weakness, diarrhea, and chills. He also reports decreased appetite. In the ED once back in room he was noted to have oxygen saturations 85% on room air. Twelve-lead EKG was obtained showing a sinus rhythm at 86 bpm with no ectopy. Temp was 90.9. Pulse 81. Respirations 18. Blood pressure 135/73. Labs are obtained showing a normal white count at 7.59. Hemoglobin is 15.0. Platelet 259,000. Neutrophils are elevated 80.9%. INR is 1.02. D-dimer is 1.03. Sodium is low at 132. Potassium 3.5. Chloride 95. Carbon dioxide 26. Anion gap is 14.5. BUN is 13. Creatinine 1.1. GFR is greater than 60. Glucose is elevated at 124. Calcium 7.9. Total bilirubin 0.9. AST is elevated at 99, ALT 89, alkaline phosphatase 107. LDH is 584. Troponin less than 0.017. CRP is 12.2. Albumin is 3.4. Lactic acid is 1.2. Ferritin is 3787. SARS Covid 2 RNA is positive. His chest x-ray shows bilateral infiltrates. Formal radiologist read is pending. He is given a 1 L fluid bolus and 200 mg of remdesivir. He is also started on 6 mg IV push of dexamethasone. He carries a history of hypertension. He is a full code. His PCP is Dr. Feldman. He subsequently admitted to the medical floor for treatment and management of his COVID-19 pneumonia. Diagnosis: Stroke: No - Discharge Data Discharge Date: 12/12/20 (Admit date: 12/09/2020) Discharge Disposition: Home, Self-Care 01 Condition: Good - Referral to Home Health Primary Care Physician: Gregorio Vincent MD - Discharge Diagnosis/Problem(s) (1) HTN (hypertension) SNOMED Code(s): 69884128 ICD Code: I10 - ESSENTIAL (PRIMARY) HYPERTENSION Status: Chronic Priority: Low Current Visit: No Qualifiers: Hypertension type: unspecified Qualified Code(s): I10 - Essential (primary) hypertension (2) Acute respiratory failure with hypoxia SNOMED Code(s): 43758376, 409034633 ICD Code: J96.01 - ACUTE RESPIRATORY FAILURE WITH HYPOXIA Status: Acute Priority: High Current Visit: Yes (3) Pneumonia due to 2019 novel coronavirus SNOMED Code(s): 078370001745622122 ICD Code: U07.1 - COVID-19; J12.82 - PNEUMONIA DUE TO CORONAVIRUS DISEASE 2019 Status: Acute Priority: High Current Visit: Yes (4) Transaminitis SNOMED Code(s): 212470440, 888615063 ICD Code: R74.01 - ELEVATION OF LEVELS OF LIVER TRANSAMINASE LEVELS Status: Acute Priority: High Current Visit: Yes (5) Elevated d-dimer SNOMED Code(s): 181313486 ICD Code: R79.89 - OTHER SPECIFIED ABNORMAL FINDINGS OF BLOOD CHEMISTRY Status: Acute Priority: High Current Visit: Yes (6) Hypocalcemia SNOMED Code(s): 8220297 ICD Code: E83.51 - HYPOCALCEMIA Status: Acute Priority: Medium Current Visit: Yes (7) Hyponatremia SNOMED Code(s): 57625263 ICD Code: E87.1 - HYPO-OSMOLALITY AND HYPONATREMIA Status: Resolved Priority: Medium Current Visit: Yes (8) Hypokalemia SNOMED Code(s): 55911040 ICD Code: E87.6 - HYPOKALEMIA Status: Acute Priority: Medium Current Visit: Yes (9) Hyperglycemia SNOMED Code(s): 29692569 ICD Code: R73.9 - HYPERGLYCEMIA, UNSPECIFIED Status: Acute Priority: Medium Current Visit: Yes (10) Obesity SNOMED Code(s): 938460932, 526639273 ICD Code: E66.9 - OBESITY, UNSPECIFIED Status: Chronic Priority: Medium Current Visit: Yes Qualifiers: Obesity type: unspecified obesity type Obesity classification: adult class 1 (BMI 30 - 34.9) Serious obesity comorbidity presence: without serious comorbidity Body mass index: BMI 33.0-33.9 Qualified Code(s): E66.9 - Obesity, unspecified; Z68.33 - Body mass index [BMI] 33.0-33.9, adult - Patient Summary/Data Consults: Consultations 12/09/20 16:04 Respiratory Care Assess and Treatment [CONS] Routine 12/09/20 16:44 Consult to Core Fitter [CONS] Routine Labs Pending at D/C: None Recommended Follow-up Testing/Procedures: Follow-up with primary care provider within 7-10 days of discharge, sooner if needed -Patient discharged on 1 L oxygen continuous and 5 L with activity. -Recommend repeat CBC, CMP, and magnesium in follow-up. Consider repeat chest x-ray. -Patient noted to have desaturation episodes at night. Concern over sleep apnea. Consider sleep study once symptoms resolve. -Patient noted to have A1c of 6.1% while here. We discussed lifestyle modifications. PCP should monitor this. Hospital Course: This is a 45-year-old male who presented to ED on 12/09/2020 from [place] walk-in [facility] with hypoxemia. He was noted to have saturations of 85% on room air in the ED. Only prior medical condition is high blood pressure which is treated with losartan. Chest x-ray was obtained and showed bilateral infiltrates consistent with COVID-19 pneumonia. He was also 1 L fluid bolus and admitted to the floor. Given his elevated D-dimer CT scan of the chest was obtained showing no findings of pulmonary embolism within the main or segmental branches. Diffuse parenchymal densities were noted within both sides of the chest compatible with diffuse Covid pneumonia. He was started on remdesivir and completed 3 days worth of treatment. He was also started on dexamethasone and completed 4 days worth of treatment. He completed 3 days of azithromycin and Rocephin. He was started on 5000 units vitamin D supplementation and zinc supplementation as well. He was also started on a 81 mg baby aspirin. Throughout his stay his oxygen saturations did wax and wane. At his worst he was requiring 5 L of oxygen via nasal cannula. There were some concerns that he may have sleep apnea as this was noted overnight. Recommend primary care provider obtain a sleep study after patient's Covid symptoms resolve. Overall he reports he is feeling much better. He is requiring 1 L of oxygen continuously and 5 L with activity. On admission he was noted to have low calcium and was started on twice daily Tums supplementation. His sodium was also noted to be low and this did resolve with a fluid bolus. He was ambulating around the room without difficulty. He was proning whenever able and utilizing his incentive spirometry and Acapella frequently. Hemoglobin A1c was obtained was 6.1%. We discussed lifestyle modifications including diet and exercise. He did see our dietitian. Recommend primary care provider monitor this. He was instructed to continue to utilize his incentive spirometry and Acapella for 1-2 more weeks. He was given 6 more days of PO dexamethasone at discharge. He was also discharged on vitamin D supplementation and zinc supplementation as noted. He was prescribed 81 mg aspirin at discharge due to the risk of coagulopathies from Covid. He was qualified for home oxygen. We did discuss obtaining a pulse oximeter and patient stated his was going to purchase one. His potassium while here was low today and he was supplemented with 40 mEq x 1 dose tonight at discharge. He is also prescribed Robitussin-DM 10 mg p.o. 3 times daily as needed for cough and Tessalon Perles 100 mg p.o. 3 times daily as needed for cough. His home losartan was continued. He was given a albuterol inhaler and instructed to use 2 puffs every 2 hours as needed for shortness of breath and wheezing. Discharged home today. Recommend patient follow-up with primary care provider within 7 to 10 days of discharge, sooner if needed. Recommend repeat CBC, CMP, and magnesium at that visit. Consider repeat chest x-ray. - Patient Instructions Diet: Usual Diet as Tolerated Activity: As Tolerated Driving: Do Not Drive (Until feeling better ) Showering/Bathing: May Shower Notify Provider of: Fever, Increased Pain, Nausea and/or Vomiting Other/Special Instructions: Follow-up with primary care provider within 7 to 10 days of discharge, sooner if needed. Wear your oxygen as directed. 1L at all times and 5L with activity. Continue to utilize your incentive spirometer (Clear/Blue device you inhale through) and Acapella (green tube you blow through) for 1 to 2 weeks or until symptoms resolve. Take all new medications as prescribed. Resume home medications as directed. Based on what we were observing here they are concerned that you may have sleep apnea. Recommend you discuss this with Dr. Feldman as you would likely benefit from a sleep study. You should continue to isolate/quarantine for a total of 20 days from symptom onset. You will likely receive a call from material handling equipment [employer] with the [facility]. Follow their directions. Should symptoms return or worsen contact primary care provider return the emergency room. - Discharge Plan *PRESCRIPTION DRUG MONITORING PROGRAM REVIEWED*: No *COPY OF PRESCRIPTION DRUG MONITORING REPORT IN PATIENT CRIS: No Prescriptions/Med Rec: Aspirin 81 mg PO DAILY #30 tab.chew Calcium Carbonate 600 mg PO BIDMEALS #40 tablet dexAMETHasone [Dexamethasone] 6 mg PO DAILY #6 tablet Potassium Chloride [Klor-Con M20] 40 meq PO ASDIRECTED #2 tab.er Albuterol [Proventil HFA] 2 puff INH Q2H PRN #1 inhaler PRN Reason: SOB/Wheezing Dextromethorphan/guaiFENesin [Robitussin DM] 10 ml PO TID PRN #20 cup PRN Reason: Cough Benzonatate [Tessalon Perle] 100 mg PO TID PRN #20 capsule PRN Reason: Cough Cholecalciferol (Vitamin D3) [Vitamin D3] 5,000 unit PO DAILY #20 cap Zinc Sulfate [Zincate] 220 mg PO DAILY #20 cap Tobacco Cessation Medication: Prescription Refused Home Medications: Home Meds Losartan [Cozaar] 25 mg PO DAILY 12/09/20 [History] Albuterol [Proventil HFA] 2 puff INH Q2H PRN #1 inhaler 12/12/20 [Rx] Aspirin 81 mg PO DAILY #30 tab.chew 12/12/20 [Rx] Benzonatate [Tessalon Perle] 100 mg PO TID PRN #20 capsule 12/12/20 [Rx] Calcium Carbonate 600 mg PO BIDMEALS #40 tablet 12/12/20 [Rx] Cholecalciferol (Vitamin D3) [Vitamin D3] 5,000 unit PO DAILY #20 cap 12/12/20 [Rx] Dextromethorphan/guaiFENesin [Robitussin DM] 10 ml PO TID PRN #20 cup 12/12/20 [Rx] Potassium Chloride [Klor-Con M20] 40 meq PO ASDIRECTED #2 tab.er 12/12/20 [Rx] Zinc Sulfate [Zincate] 220 mg PO DAILY #20 cap 12/12/20 [Rx] dexAMETHasone [Dexamethasone] 6 mg PO DAILY #6 tablet 12/12/20 [Rx] Oxygen Therapy Mode: Nasal Cannula Oxygen Flow Rate (L/min): 1 (1L at all times 5L with activity) Maintain SPO2% less than: 95 Maintain SpO2% greater than: 88 Patient Handouts: Prediabetes, Preventing Type 2 Diabetes Mellitus, COVID-19, How to Use an Incentive Spirometer, Prediabetes Eating Plan, Smokeless Tobacco Information, Adult, Steps to Quit Smoking, Prevent the Spread of COVID-19 if You Are Sick - CDC, Sepsis, Self Care, Adult Referrals: Gregorio Vincent MD [Primary Care Provider] - 12/17/20 9:15 am (check in 9:15 appt. time is 9:30) - Discharge Summary/Plan Comment DC Time >30 min.: Yes (45 mins ) - General Info Date of Service: 12/12/20 Admission Dx/Problem (Free Text: hypoxia Functional Status: Reports: Pain Controlled, Tolerating Diet, Ambulating, Urinating, Incentive Spirometry, Other (Acapella ). Denies: New Symptoms - Review of Systems General: Reports: No Symptoms. Denies: Fever, Weakness, Fatigue, Malaise, Chills HEENT: Reports: No Symptoms. Denies: Headaches, Sore Throat Pulmonary: Reports: Cough. Denies: Shortness of Breath, Sputum, Wheezing Cardiovascular: Reports: Dyspnea on Exertion. Denies: Chest Pain, Palpitations, Edema, Lightheadedness Gastrointestinal: Reports: Diarrhea (improving ). Denies: Abdominal Pain, Constipation, Nausea, Vomiting Genitourinary: Reports: No Symptoms. Denies: Pain Musculoskeletal: Reports: No Symptoms Skin: Reports: No Symptoms. Denies: Cyanosis Neurological: Reports: No Symptoms. Denies: Confusion, Dizziness, Headache, Numbness, Pre-Existing Deficit, Syncope, Tingling, Difficulty Walking, Weakness, Gait Disturbance Psychiatric: Reports: No Symptoms - Patient Data Vitals - Most Recent: Last Vital Signs Temp 99.1 F 12/12/20 07:54 Pulse 71 12/12/20 07:54 Resp 20 12/12/20 05:19 BP 101/79 12/12/20 08:51 Pulse Ox 94 L 12/12/20 09:06 Weight - Most Recent: 243 lb 8 oz I&O - Last 24 hours: Intake & Output 12/11/20 12/12/20 12/12/20 22:59 06:59 14:59 Intake Total 1160 1050 Output Total 800 500 Balance 360 550 Lab Results - Last 24 hrs: Laboratory Results - last 24 hr 12/11/20 12/12/20 12/12/20 Range/Units 17:44 05:05 05:05 WBC 7.79 (4.23-9.07) K/mm3 RBC 4.55 L (4.63-6.08) M/mm3 Hgb 14.2 (13.7-17.5) gm/dl Hct 39.3 L (40.1-51.0) % MCV 86.4 (79.0-92.2) fl MCH 31.2 (25.7-32.2) pg MCHC 36.1 H (32.2-35.5) g/dl RDW Std Deviation 37.2 (35.1-43.9) fL Plt Count 359 H (163-337) K/mm3 MPV 10.6 (9.4-12.3) fl Neut % (Auto) 75.3 H (34.0-67.9) % Lymph % (Auto) 16.0 L (21.8-53.1) % [place] % (Auto) 7.2 (5.3-12.2) % Eos % (Auto) 0.5 L (0.8-7.0) Baso % (Auto) 0.4 (0.1-1.2) % Neut # (Auto) 5.86 H (1.78-5.38) K/mm3 Lymph # (Auto) 1.25 L (1.32-3.57) K/mm3 [place] # (Auto) 0.56 (0.30-0.82) K/mm3 Eos # (Auto) 0.04 (0.04-0.54) K/mm3 Baso # (Auto) 0.03 (0.01-0.08) K/mm3 Manual Slide Review Normal smear Sodium 138 (136-145) mEq/L Potassium 3.4 L (3.5-5.1) mEq/L Chloride 101 (98-107) mEq/L Carbon Dioxide 24 (21-32) mEq/L Anion Gap 16.4 H (5-15) BUN 12 (7-18) mg/dL Creatinine 0.9 (0.7-1.3) mg/dL Est Cr Clr Drug Dosing 111.37 mL/min Estimated GFR (MDRD) > 60 (>60) mL/min BUN/Creatinine Ratio 13.3 L (14-18) Glucose 105 H (70-99) mg/dL POC Glucose 181 H (70-99) mg/dL Calcium 7.8 L (8.5-10.1) mg/dL Magnesium 1.8 (1.8-2.4) mg/dL Total Bilirubin 0.6 (0.2-1.0) mg/dL AST 40 H (15-37) U/L ALT 45 (16-63) U/L Alkaline Phosphatase 72 (46-116) U/L C-Reactive Protein 9.7 H* (<1.0) mg/dL Total Protein 6.4 (6.4-8.2) g/dl Albumin 2.7 L (3.4-5.0) g/dl Globulin 3.7 gm/dL Albumin/Globulin Ratio 0.7 L (1-2) Med Orders - Current: Current Medications Acetaminophen (Acetaminophen 325 Mg Tab) 650 mg PO Q4H PRN PRN Reason: Pain (Mild 1-3)/fever Last Admin: 12/12/20 05:25 Dose: 650 mg Documented by: Albuterol (Albuterol 6.7 Gm Inhaler) 0 gm INH Q2H PRN PRN Reason: SOB/Wheezing Last Admin: 12/12/20 02:03 Dose: 2 puff Documented by: Aspirin (Aspirin 81 Mg Tab.Chew) 81 mg PO DAILY [facility] Last Admin: 12/12/20 08:52 Dose: 81 mg Documented by: Benzonatate (Benzonatate 100 Mg Cap) 100 mg PO TID PRN PRN Reason: Cough Calcium Carbonate/Glycine (Calcium Carbonate 600 Mg Tab) 600 mg PO BIDMEALS [facility] Last Admin: 12/12/20 06:30 Dose: Not Given Documented by: Cholecalciferol (Cholecalciferol (Vitamin D3) 5,000 Unit Cap) 5,000 unit PO DAILY [facility] Last Admin: 12/12/20 08:52 Dose: 5,000 unit Documented by: Dexamethasone (Dexamethasone 4 Mg Tab) 6 mg PO DAILY [facility] Stop: 12/18/20 09:01 Last Admin: 12/12/20 08:52 Dose: 6 mg Documented by: Docusate Sodium (Docusate Sodium 100 Mg Cap) 100 mg PO BID PRN PRN Reason: Constipation Enoxaparin Sodium (Enoxaparin 40 Mg/0.4 Ml Syringe) 40 mg SUBCUT DAILY [facility] Last Admin: 12/12/20 08:52 Dose: 40 mg Documented by: Famotidine (Famotidine 20 Mg Tab) 20 mg PO BID [facility] Last Admin: 12/12/20 08:52 Dose: 20 mg Documented by: Guaifenesin/Phenylephrine HCl (Guaifenesin/Dextromethorphan 100-10 Mg/5 Ml Soln 5 Ml Cup) 10 ml PO TID PRN PRN Reason: Cough Ceftriaxone Sodium 2 gm/ (Sodium Chloride) 100 mls @ 200 mls/hr IV Q24H [facility] Last Admin: 12/11/20 20:03 Dose: 200 mls/hr Documented by: Remdesivir 100 mg/ Sodium (Chloride) 100 mls @ 100 mls/hr IV Q24H [facility] Stop: 12/13/20 17:29 Last Admin: 12/11/20 17:37 Dose: 100 mls/hr Documented by: Losartan Potassium (Losartan 25 Mg Tab) 25 mg PO DAILY [facility] Last Admin: 12/12/20 08:51 Dose: 25 mg Documented by: Magnesium Hydroxide (Magnesium Hydroxide 400 Mg/5 Ml Susp 30 Ml Cup) 30 ml PO Q12H PRN PRN Reason: Constipation Ondansetron HCl (Ondansetron 4 Mg/2 Ml Sdv) 4 mg IV Q6H PRN PRN Reason: Nausea/Vomiting Last Admin: 12/11/20 09:07 Dose: 4 mg Documented by: Potassium Chloride (Potassium Chloride 20 Meq Tab.Er) 40 meq PO BID [facility] Stop: 12/12/20 21:01 Last Admin: 12/12/20 08:51 Dose: 40 meq Documented by: Sodium Chloride (Sodium Chloride 0.9% 10 Ml Syringe) 10 ml FLUSH ASDIRECTED PRN PRN Reason: Keep Vein Open Last Admin: 12/09/20 13:25 Dose: 10 ml Documented by: Zinc Sulfate (Zinc Sulfate 220 Mg Cap) 220 mg PO DAILY [facility] Last Admin: 12/12/20 08:52 Dose: 220 mg Documented by: Discontinued Medications Dexamethasone (Dexamethasone 4 Mg/Ml Sdv) 6 mg IVPUSH ONETIME ONE Stop: 12/09/20 15:42 Last Admin: 12/09/20 16:33 Dose: 6 mg Documented by: Famotidine (Famotidine 20 Mg Tab) 20 mg PO DAILY [facility] Sodium Chloride (Normal Saline) 1,000 mls @ 1,000 mls/hr IV .BOLUS [facility] Last Admin: 12/09/20 13:24 Dose: 1,000 mls/hr Documented by: Remdesivir 200 mg/ Sodium (Chloride) 250 mls @ 250 mls/hr IV ONETIME ONE Stop: 12/09/20 15:42 Last Admin: 12/09/20 16:34 Dose: 250 mls/hr Documented by: Azithromycin 500 mg/ Sodium (Chloride) 250 mls @ 250 mls/hr IV Q24H [facility] Stop: 12/11/20 17:14 Last Admin: 12/09/20 18:42 Dose: 250 mls/hr Documented by: Azithromycin 500 mg/ Sodium (Chloride) 250 mls @ 250 mls/hr IV Q24H [facility] Stop: 12/11/20 18:59 Last Admin: 12/11/20 17:37 Dose: 250 mls/hr Documented by: Potassium Chloride (Potassium Chloride 20 Meq Tab.Er) 40 meq PO ONETIME ONE Stop: 12/09/20 16:13 Last Admin: 12/09/20 16:37 Dose: 40 meq Documented by: - Exam Quality Assessment: Reports: Supplemental Oxygen (1L), DVT Prophylaxis. Denies: Urine Catheter General: Reports: Alert, Oriented, Cooperative, No Acute Distress HEENT: Reports: Pupils Equal, Pupils Reactive, Mucous Membr. Moist/[place] Neck: Reports: Supple, Trachea Midline Lungs: Reports: Clear to Auscultation, Normal Respiratory Effort, Decreased Breath Sounds Cardiovascular: Reports: Regular Rate, Regular Rhythm GI/Abdominal Exam: Normal Bowel Sounds, Soft, Non-Tender, No Distention (Male) Exam: Deferred Rectal (Males) Exam: Deferred Back Exam: Reports: Normal Inspection, Full Range of Motion Extremities: Normal Inspection, Normal Range of Motion, Non-Tender, No Pedal Edema, Normal Capillary Refill Skin: Reports: Warm, Dry, Intact Neurological: Reports: No New Focal Deficit Psy/Mental Status: Reports: Alert, Normal Affect, Normal Mood
== END 2020-12-12 15:05 | disposition home or self-care (01) | DRG 177 ==
LOC: JD.ED 12:36 → JD.MS 15:59
PROVIDERS: ADMIT Pediatrics; ATTEND Pediatrics
PROC: 8E0ZXY6 Isolation (ICD-10-PCS; principal; 2020-12-09)
PROC: XW033E5 Introduction of Remdesivir Anti-infective into Peripheral Vein, Percutaneous Approach, New Technology Group 5 (ICD-10-PCS; 2020-12-09)
PROC: XW033F5 Introduction of Other New Technology Therapeutic Substance into Peripheral Vein, Percutaneous Approach, New Technology Group 5 (ICD-10-PCS; 2020-12-09)
DX: U07.1 COVID-19 (principal); J12.82 Pneumonia due to coronavirus disease 2019; J96.01 Acute respiratory failure with hypoxia; E87.1 Hypo-osmolality and hyponatremia; I10 Essential (primary) hypertension; R74.01 Elevation of levels of liver transaminase levels; E87.6 Hypokalemia; R73.9 Hyperglycemia, unspecified; E66.9 Obesity, unspecified; Z68.33 Body mass index [BMI] 33.0-33.9, adult; R73.03 Prediabetes; E83.51 Hypocalcemia
CPT/HCPCS: 36415; 71045; 71045-26; 71275; 71275-26; 80053; 80076; 82306; 82728; 82947; 83036; 83605; 83615; 83735; 84484; 85025; 85379; 85610; 85730; 86140; 93005; 93010; 94640; 94667; 94668; 94762; 99223; 99233; 99239; 99285; 99285-25; A9270-GY; J0456; J0696; J1100; J1650; J2405; J7030; J7050; J8540; U0002

== ENCOUNTER 2021-04-22 09:57 | Emergency (ER) | payer OTHER ==
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
== END 2021-04-22 11:01 | disposition home or self-care (01) ==
LOC: JD.ED 09:57
DX: S01.01XA Laceration without foreign body of scalp, initial encounter (principal); S40.012A Contusion of left shoulder, initial encounter; S80.01XA Contusion of right knee, initial encounter; I10 Essential (primary) hypertension; E66.9 Obesity, unspecified; Z72.0 Tobacco use; Z79.82 Long term (current) use of aspirin; Z79.899 Other long term (current) drug therapy; Z68.32 Body mass index [BMI] 32.0-32.9, adult; V86.59XA Driver of other special all-terrain or other off-road motor vehicle injured in nontraffic accident, initial encounter; Y92.410 Unspecified street and highway as the place of occurrence of the external cause
CPT/HCPCS: 12001; 99283-25

== ENCOUNTER 2021-07-10 06:10 | Day surgery (SDC) | payer OTHER ==
[~2021-07-10 06:10] MED LIST: Lactated Ringers 1,000 ML IV SCH; Lidocaine 1%/Sod Bicarbonate in NS 8.4% 1 ML Syringe IDERM PRN; Sodium Chloride 0.9% 10 ML Syringe FLUSH PRN
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
[2021-07-10] MEDS ORDERED: fentaNYL 250 MCG/5 ML SDV ONE (06:43)
[2021-07-10] MEDS ORDERED: Ondansetron 4 MG/2 ML SDV ONE (06:43)
[2021-07-10] MEDS ORDERED: Propofol 200 MG/20 ML SDV ONE ×2 (06:43→07:42)
[2021-07-10] MEDS ORDERED: Midazolam 1 MG/ML 2 ML SDV ONE (06:43)
[2021-07-10] MEDS ORDERED: Lidocaine 1% 4 ML ONE (06:44)
[2021-07-10] MEDS ORDERED: ceFAZolin 1 GM Vial ONE (06:50)
[2021-07-10] MEDS ORDERED: Bupivacaine 0.25% 10 ML SDV ONE ×2 (07:08→07:31)
[2021-07-10] MEDS ORDERED: Triamcinolone Acetonide 40 MG/ML 1 ML SDV ONE (07:12)
[2021-07-10] MEDS ORDERED: Ketamine 500 mg/10 ML MDV ONE (07:21)
[2021-07-10] MEDS ORDERED: Labetalol 100 MG/20 ML MDV ONE (07:28)
[2021-07-10] MEDS ORDERED: Lidocaine 1% 30 ML SDV ONE (07:37)
--- NOTE | 2021-07-10 08:11 | PCM48HPAN ---
Post Anesthesia Note - EVALUATION WITHIN 48HRS OF ANESTHETIC Vital Signs in Normal Range: Yes Patient Participated in Evaluation: Yes Respiratory Function Stable: Yes Airway Patent: Yes Cardiovascular Function Stable: Yes Hydration Status Stable: Yes Pain Control Satisfactory: Yes Nausea and Vomiting Control Satisfactory: Yes Mental Status Recovered: Yes Vital Signs: Last Vital Signs Temp 36.1 C 07/10/21 06:05 Pulse 69 07/10/21 06:05 Resp 18 07/10/21 06:05 BP 149/90 H 07/10/21 06:05 Pulse Ox 95 07/10/21 06:05 - COMMENTS/OBSERVATIONS Free Text/Narrative:: No anesthesia complications noted
[2021-07-10] MEDS ORDERED: Acetaminophen/HYDROcodone 325-5 MG Tab PO ONE (09:00)
--- NOTE | 2021-07-29 20:04 | PCM.OPNOTE ---
- General Post-Op/Procedure Note Date of Surgery/Procedure: 07/10/21 Operative Procedure(s): right knee prepatellar bursectomy with right knee aspiration and corticsteroid injection Pre Op Diagnosis: right knee prepatellar bursitis with right knee osteoarthrosis Post-Op Diagnosis: Same Anesthesia Technique: General LMA, Local Primary Surgeon: Jesús David Anesthesia Provider: Corey Chavira Feed Mill Manager: Rebeca Torres in mLs: 5 Complications: None Condition: Good
--- NOTE | 2021-07-30 07:35 | OR ---
DATE OF OPERATION: 07/10/2021 SURGEON: Jesús David MD OPERATION PERFORMED: Right knee prepatellar bursectomy with right knee aspiration and corticosteroid injection. PREOPERATIVE DIAGNOSIS: Right knee prepatellar bursitis with right knee osteoarthrosis. POSTOPERATIVE DIAGNOSIS: Right knee prepatellar bursitis with right knee osteoarthrosis. ANESTHESIA: General LMA with local. ANESTHESIA PROVIDER: Corey Chavira CRNA CAGE TENDER: Rebeca Torres PA-C ESTIMATED BLOOD LOSS: Less than 5 mL. COMPLICATIONS: None. CONDITION: Stable. DESCRIPTION OF PROCEDURE: The patient was identified in the preoperative holding area. Proper site was marked and identified by surgeon. The patient was taken back to the operating theater where after anesthesia right lower extremity had a nonsterile tourniquet applied and then it was sterilely prepped and draped in the usual sterile fashion. OR time-out was performed. The patient received 2 g IV Ancef. Right lower extremity was exsanguinated. Tourniquet was insufflated to 250 mmHg. Standard anterior incision was made right over the prepatellar bursal region. At this time, it was noted in the prepatellar bursal region, the patient did have a large amount of soft tissue and overgrowth of tissue. A prepatellar bursectomy was then completed back to a stable rim on all sides. At this time, the patient also had a large effusion of the right knee with known osteoarthritis, so under sterile technique, a 19-gauge needle was used to aspirate the right knee and then 2 mL of 40 mg Kenalog and 4 mL of 0.25% Marcaine were injected. Adequate saline was irrigated through the right knee wound. 2-0 Vicryl was used subcutaneously and hakeem used for skin closure. The patient was placed in a sterile soft dressing and sent to the PACU in stable condition. MMODAL /[id number]
== END 2021-07-10 08:50 | disposition home or self-care (01) ==
LOC: JD.SDS 06:10
PROVIDERS: ATTEND Orthopaedic Surgery
DX: M1A.0611 Idiopathic chronic gout, right knee, with tophus (tophi) (principal); M17.11 Unilateral primary osteoarthritis, right knee; I10 Essential (primary) hypertension; F17.210 Nicotine dependence, cigarettes, uncomplicated; J30.9 Allergic rhinitis, unspecified; R73.03 Prediabetes; S80.01XA Contusion of right knee, initial encounter; E66.9 Obesity, unspecified; E78.00 Pure hypercholesterolemia, unspecified; Z79.82 Long term (current) use of aspirin; Z79.899 Other long term (current) drug therapy; Z68.34 Body mass index [BMI] 34.0-34.9, adult; Z01.812 Encounter for preprocedural laboratory examination; Z20.822 Contact with and (suspected) exposure to COVID-19
CPT/HCPCS: 20610; 27340; 87635; A9270; J0690; J2250; J2405; J2704; J3010; J3301; J3490; J7120; 01320; 88300; U0002